=== PATIENT | male | born 1950 | race Caucasian/White ===

== ENCOUNTER 2017-04-29 10:33 | Emergency (ER) | payer MEDICARE, OTHER ==
[~2017-04-29] VITALS: Ht 172.7 cm; Wt 97.5 kg
[2017-04-29] MEDS ORDERED: ONDANSETRON ODT 4 MG TAB.RAPDIS. PO ONE (11:00)
[2017-04-29] MEDS ORDERED: IV NORMAL SALINE 1000ML BAG 1,000 ML IV ONE (11:15)
--- NOTE | 2017-04-29 11:40 | EKG ---
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
[2017-04-29 11:57] LABS: BASO % 0 % (0-3); EOS % 1 % (0-3); HEMATOCRIT 43.8 % (39.0-53.0); HEMOGLOBIN 15.2 g/dL (13.0-17.5); LYMPH # 1.1 x10^3/uL (1.0-4.8); LYMPH % 11 % (24-48); MEAN CORPUSCULAR HEMOGLOBIN 33 pg (25-35); MEAN CORPUSCULAR HGB CONC 35 g/dL (31-37); MEAN CORPUSCULAR VOLUME 94 fL (79-100); MONO % 6 % (0-9); NEUT % 82 % (31-73); PLATELET COUNT 260 x10^3/uL (140-400); RED BLOOD COUNT 4.65 x10^6/uL (4.30-5.70); RED CELL DISTRIBUTION WIDTH 13.4 % (11.5-14.5)
[2017-04-29] MEDS ORDERED: ONDANSETRON PF 4 MG/2 ML VIAL. IV ONE (12:00)
[2017-04-29 12:12] LABS: CALCIUM 9.2 mg/dL (8.5-10.1); CREATININE 1.1 mg/dL (0.7-1.3); GFR 66.4; POTASSIUM 4.6 mmol/L (3.5-5.1)
[2017-04-29 12:14] LABS: ETHANOL < 10 mg/dL (0-10)
[2017-04-29 12:17] LABS: TOTAL BILIRUBIN 0.7 mg/dL (0.2-1.0); TOTAL PROTEIN 8.2 g/dL (6.4-8.2)
[2017-04-29 12:26] LABS: CKMB MASS 5.2 ng/mL (0.0-3.6)
--- NOTE | 2017-04-29 12:56 | RAD ---
Indication fall, pain. A single view of the chest was obtained as well as films targeted to left ribs. The chest is compared to a study 01/01/2016. The heart and pulmonary vessels appear normal. The lungs are clear. There is no pleural fluid. There is no pneumothorax. A granuloma is noted in the right lung, stable. Films targeted to left ribs appear normal. IMPRESSION: Normal single view of the chest. Normal plain films left rib
[2017-04-29 13:19] LABS: BILIRUBIN,URINE NEGATIVE (NEG); GLUCOSE,URINE >=1000 mg/dL (NEG); NITRITE,URINE NEGATIVE (NEG); PROTEIN,URINE 100 mg/dL (NEG-TRACE); UROBILINOGEN,URINE 0.2 mg/dL (0.2 mg/dL)
[2017-04-29 13:23] LABS: BARBITURATES NEG (NEG); BENZODIAZEPINES NEG (NEG); CANNABINOIDS NEG (NEG); COCAINE NEG (NEG); METHADONE NEG (NEG); OPIATES POS (NEG); PHENCYCLIDINE NEG (NEG)
[2017-04-29 13:30] LABS: BACTERIA,URINE 0 /HPF (0-FEW); WBC,URINE 0 /HPF (0-4)
[2017-04-29 13:57] VITALS: BP 132/68
[2017-04-29] MEDS ORDERED: PROCHLORPERAZINE 10 MG/2 ML VIAL. IV ONE (14:00)
[2017-04-29] MEDS ORDERED: ONDA4TAB10 SL (14:14)
[2017-04-29] MEDS ORDERED: PROC10TA57 PO (14:14)
[2017-04-29] MEDS ORDERED: ACET-704 PO (14:14)
--- NOTE | 2017-04-29 14:14 | PHYS DOC ---
Past Medical History Past Medical History: Diabetes-Type II, High Cholesterol, Hypertension Additional Past Medical Histor: neuropathy, lower ext edema Past Surgical History: Cholecystectomy, Knee Replacement Additional Past Surgical Histo: cardiac stent Alcohol Use: Heavy Additional Information: 12 pack every other day Drug Use: None Adult General Chief Complaint Chief Complaint: MECHANICAL FALL HPI HPI Patient is a 67 year old male with history of diabetes hypertension and high cholesterol who presents with mild left anterior rib pain that began yesterday after he fell. Patient states he tripped on his feet and fell. Patient denies hitting his head on the ground. Denies any loss of consciousness. He states he took 2 oxycodone tablets from a neighbor and he has been nauseated since then. Review of Systems Review of Systems Constitutional: Denies fever or chills [] Eyes: Denies change in visual acuity, redness, or eye pain [] HENT: Denies nasal congestion or sore throat [] Respiratory: mild left anterior rib pain Cardiovascular: No additional information not addressed in HPI [] GI: Nausea : Denies dysuria or hematuria [] Musculoskeletal: Denies back pain or joint pain [] Integument: Denies rash or skin lesions [] Neurologic: Denies headache, focal weakness or sensory changes [] Endocrine: Denies polyuria or polydipsia [] Current Medications Current Medications Current Medications Medications (Trade) Dose Ordered Sig/Gautam Start Time Stop Time Status Last Admin Dose Admin Ondansetron HCl (Zofran Odt) 4 mg 1X ONCE 04/29/17 11:00 04/29/17 11:01 DC 04/29/17 11:25 4 MG Ondansetron HCl (Zofran) 4 mg 1X ONCE 04/29/17 12:00 04/29/17 12:01 DC 04/29/17 11:57 4 MG Prochlorperazine Edisylate (Compazine) 10 mg 1X ONCE 04/29/17 14:00 04/29/17 14:01 DC 04/29/17 14:03 10 MG Sodium Chloride 1,000 ml @ 1,000 mls/hr 1X ONCE 04/29/17 11:15 04/29/17 12:14 DC 04/29/17 11:57 1,000 MLS/HR Allergies Allergies Allergies Coded Allergies Type Severity Reaction Last Updated Verified Penicillins Allergy Mild HIVES 04/29/17 Yes Physical Exam Physical Exam Constitutional: Well developed, well nourished, no acute distress, non-toxic appearance. [] HENT: Normocephalic, atraumatic, bilateral external ears normal, oropharynx moist, no oral exudates, nose normal. [] Eyes: PERRLA, EOMI, conjunctiva normal, no discharge. [] Neck: Normal range of motion, no tenderness, supple, no stridor. [] Cardiovascular:Heart rate regular rhythm, no murmur [] Lungs & Thorax: Bilateral breath sounds clear to auscultation, tenderness on palpation of the left anterior ribs approximately ribs 5 and 6 midclavicular line. Abdomen: Bowel sounds normal, soft, no tenderness, no masses, no pulsatile masses. [] Skin: Warm, dry, no erythema, no rash. [] Back: No tenderness, no CVA tenderness. [] Extremities: No tenderness, no cyanosis, no clubbing, ROM intact, no edema. [] Neurologic: Alert and oriented X 3, normal motor function, normal sensory function, no focal deficits noted. [] Psychologic: Affect normal, judgement normal, mood normal. [] Current Patient Data Vital Signs Vital Signs Date Time Temp Pulse Resp B/P (MAP) Pulse Ox O2 Delivery O2 Flow Rate FiO2 04/29/17 13:57 78 18 132/68 (89) 94 Room Air 04/29/17 10:46 98.0 98.0 Lab Values Laboratory Tests Test 04/29/17 11:45 04/29/17 13:10 White Blood Count 10.0 x10^3/uL (4.0-11.0) Red Blood Count 4.65 x10^6/uL (4.30-5.70) Hemoglobin 15.2 g/dL (13.0-17.5) Hematocrit 43.8 % (39.0-53.0) Mean Corpuscular Volume 94 fL (79-100) Mean Corpuscular Hemoglobin 33 pg (25-35) Mean Corpuscular Hemoglobin Concent 35 g/dL (31-37) Red Cell Distribution Width 13.4 % (11.5-14.5) Platelet Count 260 x10^3/uL (140-400) Neutrophils (%) (Auto) 82 % (31-73) H Lymphocytes (%) (Auto) 11 % (24-48) L Monocytes (%) (Auto) 6 % (0-9) Eosinophils (%) (Auto) 1 % (0-3) Basophils (%) (Auto) 0 % (0-3) Neutrophils # (Auto) 8.1 x10^3uL (1.8-7.7) H Lymphocytes # (Auto) 1.1 x10^3/uL (1.0-4.8) Monocytes # (Auto) 0.6 x10^3/uL (0.0-1.1) Eosinophils # (Auto) 0.0 x10^3/uL (0.0-0.7) Basophils # (Auto) 0.0 x10^3/uL (0.0-0.2) Sodium Level 130 mmol/L (136-145) L Potassium Level 4.6 mmol/L (3.5-5.1) Chloride Level 95 mmol/L (98-107) L Carbon Dioxide Level 22 mmol/L (21-32) Anion Gap 13 (6-14) Blood Urea Nitrogen 15 mg/dL (8-26) Creatinine 1.1 mg/dL (0.7-1.3) Estimated GFR (Cockcroft-Gault) 66.4 BUN/Creatinine Ratio 14 (6-20) Glucose Level 225 mg/dL (70-99) H Calcium Level 9.2 mg/dL (8.5-10.1) Total Bilirubin 0.7 mg/dL (0.2-1.0) Aspartate Amino Transferase (AST) 28 U/L (15-37) Alanine Aminotransferase (ALT) 28 U/L (16-63) Alkaline Phosphatase 69 U/L (46-116) Creatine Kinase 475 U/L (39-308) H Creatine Kinase MB (Mass) 5.2 ng/mL (0.0-3.6) H Creatine Kinase MB Relative Index 1.1 % (0-4) Troponin I Quantitative < 0.017 ng/mL (0.000-0.055) Total Protein 8.2 g/dL (6.4-8.2) Albumin 4.0 g/dL (3.4-5.0) Albumin/Globulin Ratio 1.0 (1.0-1.7) Salicylates Level 2.9 mg/dL (2.8-20.0) Salicylate Last Dose Date Unknown Salicylate Last Dose Time Unknown Acetaminophen Level < 2 mcg/ml (10-30) L Acetaminophen Last Dose Date Unknown Acetaminophen Last Dose Time Unknown Ethyl Alcohol Level < 10 mg/dL (0-10) Urine Collection Type Unknown Urine Color Yellow Urine Clarity Clear Urine pH 6.0 Urine Specific [place] 1.020 Urine Protein 100 mg/dL (NEG-TRACE) Urine Glucose (UA) >=1000 mg/dL (NEG) Urine Ketones (Stick) Trace mg/dL (NEG) Urine Blood Negative (NEG) Urine Nitrite Negative (NEG) Urine Bilirubin Negative (NEG) Urine Urobilinogen Dipstick 0.2 mg/dL (0.2 mg/dL) Urine Leukocyte Esterase Negative (NEG) Urine RBC 6-10 /HPF (0-2) Urine WBC 0 /HPF (0-4) Urine Bacteria 0 /HPF (0-FEW) Urine Hyaline Casts Moderate /HPF Urine Mucus Mod /LPF Urine Opiates Screen Pos (NEG) Urine Methadone Screen Neg (NEG) Urine Barbiturates Neg (NEG) Urine Phencyclidine Screen Neg (NEG) Urine Amphetamine/Methamphetamine Neg (NEG) Urine Benzodiazepines Screen Neg (NEG) Urine Cocaine Screen Neg (NEG) Urine Cannabinoids Screen Neg (NEG) Urine Ethyl Alcohol Neg (NEG) Laboratory Tests 04/29/17 11:45 Laboratory Tests 04/29/17 11:45 EKG EKG []EKG interpreted by Dr. Romero sinus rhythm heart rate 84 no STEMI Radiology/Procedures Radiology/Procedures []PROCEDURE: RIBS LEFT AND PA CHEST Indication fall, pain. A single view of the chest was obtained as well as films targeted to left ribs. The chest is compared to a study 01/01/2016. The heart and pulmonary vessels appear normal. The lungs are clear. There is no pleural fluid. There is no pneumothorax. A granuloma is noted in the right lung, stable. Films targeted to left ribs appear normal. IMPRESSION: Normal single view of the chest. Normal plain films left rib DICTATED and SIGNED BY: TEENA PRICE MD DATE: 04/29/17 1250 CC: PANCHO MCCLURE; GALILEO DAVENPORT MILD DISABILITIES TEACHER; NON,STAFF ~ Course & Med Decision Making Course & Med Decision Making Pertinent Labs and Imaging studies reviewed. (See chart for details) Patient is in the ED with left anterior rib pain after falling last night. He tripped on himself. He took 2 oxycodone tablets from a neighbor and is nauseated from the oxycodone. EKG interpreted by Dr. Romero sinus rhythm heart rate 84 no STEMI. Chest x-ray interpreted by radiologist was negative for any acute findings. CBC with a sodium of 130, patient is alert and oriented has no neurological symptoms. Cardiac workup is negative. Patient was given a liter of IV fluid Zofran and Compazine in the ED with good relief of his nausea. Had a consult at all times He was advised not to take pain medicines from other people. He was discharged with Tylenol 3 Compazine and Zofran. He is to follow-up with his own PCP in 3-7 days. Patient was encouraged to increase dietary sodium intake through salty foods for three days Dragon Disclaimer Dragon Disclaimer This electronic medical record was generated, in whole or in part, using a voice recognition dictation system. Departure Departure Impression: Primary Impression: Contusion of rib on left side Additional Impressions: Fall from standing Nausea Hyponatremia Disposition: 01 HOME, SELF-CARE Condition: STABLE Referrals: PANCHO MCCLURE (PCP) Follow-up with your doctor in 2-7 days Patient Instructions: Fall Prevention and Home Safety, Nausea, Adult, Rib Contusion Additional Instructions: You were seen for left rib contusion after falling. You also have nausea from taking Percocet/Oyxcodone. Do not take Percocet/oxycodone anymore for pain. Take the prescribed nausea medicine as needed. Take the prescribed pain medicine as needed. Follow-up with your doctor as soon as you can. Come back to the ED if symptoms worsen. Scripts Acetaminophen With Codeine (TYLENOL WITH CODEINE #3 TABLET) 1 Each Tablet 1 TAB PO PRN Q6HRS Y for PAIN, #20 TAB Prov: MUTUNGA,GALILEO MILD DISABILITIES TEACHER 04/29/17 Prochlorperazine Maleate (Compazine) 10 Mg Tablet 10 MG PO Q8HRS, #20 TAB Prov: MUTUNGA,GALILEO MILD DISABILITIES TEACHER 04/29/17 Ondansetron (ZOFRAN ODT) 4 Mg Tab.rapdis 1 TAB SL Q8HRS, #15 TAB Prov: MUTUNGA,GALILEO MILD DISABILITIES TEACHER 04/29/17 Problem Qualifiers Primary Impression: Contusion of rib on left side Encounter type: initial encounter Qualified Codes: S20.212A - Contusion of left front wall of thorax, initial encounter Additional Impressions: Fall from standing Encounter type: initial encounter Qualified Codes: W19.XXXA - Unspecified fall, initial encounter GALILEO DAVENPORT MILD DISABILITIES TEACHER Apr 29, 2017 14:14
== END 2017-04-29 14:30 | disposition home or self-care (01) ==
LOC: ER 10:33
DX: S20.212A Contusion of left front wall of thorax, initial encounter (principal); E87.1 Hypo-osmolality and hyponatremia; R11.0 Nausea; E78.00 Pure hypercholesterolemia, unspecified; I10 Essential (primary) hypertension; E11.40 Type 2 diabetes mellitus with diabetic neuropathy, unspecified; Z90.49 Acquired absence of other specified parts of digestive tract; Z95.5 Presence of coronary angioplasty implant and graft; Z96.659 Presence of unspecified artificial knee joint; F17.200 Nicotine dependence, unspecified, uncomplicated; Z88.0 Allergy status to penicillin; F10.10 Alcohol abuse, uncomplicated; Y90.9 Presence of alcohol in blood, level not specified; W01.0XXA Fall on same level from slipping, tripping and stumbling without subsequent striking against object, initial encounter; Y93.89 Activity, other specified; Y92.89 Other specified places as the place of occurrence of the external cause; Y99.8 Other external cause status
CPT/HCPCS: 36415; 71101; 80053; 80305; 81001; 82553; 84484; 85027; 93005; 96361; 96374; 96375; 99285; G0480; J0780; J2405; J7030; Q0162; 80320; 80329; G0481

== ENCOUNTER 2019-01-17 21:59 | Emergency (ER) | payer MEDICARE ==
[~2019-01-17] VITALS: Ht 170.2 cm; Wt 97.5 kg
[~2019-01-17 21:59] MED LIST: ACET-704 PO; ONDA4TAB10 SL; PROC10TA57 PO
[2019-01-18 00:13] LABS: BASO # 0.1 x10^3/uL (0.0-0.2); BASO % 1 % (0-3); EOS % 0 % (0-3); HEMATOCRIT 46.9 % (39.0-53.0); HEMOGLOBIN 16.3 g/dL (13.0-17.5); LYMPH # 0.8 x10^3/uL (1.0-4.8); LYMPH % 8 % (24-48); MEAN CORPUSCULAR HEMOGLOBIN 33 pg (25-35); MEAN CORPUSCULAR HGB CONC 35 g/dL (31-37); MEAN CORPUSCULAR VOLUME 94 fL (79-100); MONO # 0.6 x10^3/uL (0.0-1.1); MONO % 6 % (0-9); NEUT # 9.1 x10^3uL (1.8-7.7); NEUT % 85 % (31-73); PLATELET COUNT 253 x10^3/uL (140-400); RED BLOOD COUNT 5.02 x10^6/uL (4.30-5.70); RED CELL DISTRIBUTION WIDTH 13.3 % (11.5-14.5); WHITE BLOOD COUNT 10.7 x10^3/uL (4.0-11.0)
[2019-01-18 00:14] LABS: CALCIUM 9.4 mg/dL (8.5-10.1); CREATININE 1.7 mg/dL (0.7-1.3); POTASSIUM 4.7 mmol/L (3.5-5.1)
[2019-01-18] MEDS ORDERED: IV NORMAL SALINE 1000ML BAG 1,000 ML IV ONE (00:15)
[2019-01-18] MEDS ORDERED: ONDANSETRON PF 4 MG/2 ML VIAL. IV ONE (00:15)
[2019-01-18 00:20] LABS: ALBUMIN 3.2 g/dL (3.4-5.0); ALBUMIN/GLOBULIN RATIO 0.7 (1.0-1.7); TOTAL BILIRUBIN 0.6 mg/dL (0.2-1.0); TOTAL PROTEIN 7.8 g/dL (6.4-8.2)
[2019-01-18 00:52] LABS: % BANDS 1 % (0-9); % LYMPHS 10 % (24-48); % MONOS 6 % (0-10); % SEGS 83 % (35-66); PLT ESTIMATE ADEQUATE (ADEQUATE)
[2019-01-18] MEDS ORDERED: ONDANSETRON ODT 4 MG TAB.RAPDIS. PO ONE (01:00)
--- NOTE | 2019-01-18 01:35 | RAD ---
PQRS Compliance statement: One or more of the following individualized dose reduction techniques were utilized for this examination: 1. Automated exposure control. 2. Adjustment of the mA and/or kV according to patient size. 3. Use of iterative reconstruction technique. Indication:ABD PAIN, VOMITING TECHNIQUE: CT abdomen and pelvis without IV contrast with multiplanar reformats. COMPARISON: 11/12/2010 FINDINGS: Limited evaluation of solid abdominal and pelvic organs due to lack of IV contrast. Heart is normal in size. No pericardial or pleural effusion. Clear lung bases. Noncontrast appearance of the liver, spleen, pancreas, adrenals within normal limits. Status post cholecystectomy. No nephrolithiasis or hydronephrosis. Bilateral perinephric stranding densities, nonspecific and may be secondary to edema or chronic scarring. Moderate diffuse atherosclerotic disease of the abdominal aorta and bilateral iliac arteries. Thick atherosclerotic plaque at the origin of the celiac axis and SMA. No free pelvic fluid or ascites. Small bilateral fat-containing inguinal hernia. Sigmoid and descending colon diverticulosis. Circumferential wall thickening of the descending colon with pericolonic inflammatory changes. No bowel obstruction. Normal appendix. The prostate and seminal vesicles show no large mass. No pneumoperitoneum. Urinary bladder is within normal limits. No suspicious bony lesion. IMPRESSION: 1. Findings of descending colon colitis. Sigmoid and distal descending colon diverticulosis. 2. Significant atherosclerotic plaque at the origin of the celiac axis, SMA and of the proximal and mid segment of the SMA. Electronically signed by: Elder Ledesma DO (01/18/2019 1:32 AM) [facility]
--- NOTE | 2019-01-18 01:40 | PHYS DOC ---
Past Medical History Past Medical History: Diabetes-Type II, High Cholesterol, Hypertension Additional Past Medical Histor: neuropathy, lower ext edema Past Surgical History: Cholecystectomy, Knee Replacement Additional Past Surgical Histo: cardiac stent Alcohol Use: Heavy Drug Use: None Adult General Chief Complaint Chief Complaint: NAUSEA/VOMITING/DIARRHA HPI HPI Patient is a 68 year old male presents with a chief complaint of abdominal pain associated with nausea and vomiting. Patient states symptoms started 1400 hrs. Patient's pain is located in the left lower abdomen. Pain does not radiate. Patient denies any associated diarrhea. Review of Systems Review of Systems Constitutional: Denies fever or chills [] Eyes: Denies change in visual acuity, redness, or eye pain [] HENT: Denies nasal congestion or sore throat [] Respiratory: Denies cough or shortness of breath [] Cardiovascular: No additional information not addressed in HPI [] GI Positive abdominal pain positive nausea positive vomiting : Denies dysuria or hematuria [] Musculoskeletal: Denies back pain or joint pain [] Integument: Denies rash or skin lesions [] Neurologic: Denies headache, focal weakness or sensory changes [] Endocrine: Denies polyuria or polydipsia [] All other systems were reviewed and found to be within normal limits, except as documented in this note. Current Medications Current Medications Current Medications Medications (Trade) Dose Ordered Sig/Gautam Start Time Stop Time Status Last Admin Dose Admin Ondansetron HCl (Zofran Odt) 4 mg 1X ONCE 01/18/19 01:00 01/18/19 01:01 DC 01/18/19 01:01 4 MG Ondansetron HCl (Zofran) 4 mg 1X ONCE 01/18/19 00:15 01/18/19 00:44 DC Promethazine HCl (Phenergan Supp) 25 mg 1X ONCE 01/18/19 02:00 01/18/19 02:01 DC 01/18/19 02:00 25 MG Sodium Chloride 1,000 ml @ 1,000 mls/hr 1X ONCE 01/18/19 00:15 01/18/19 00:44 DC Allergies Allergies Allergies Coded Allergies Type Severity Reaction Last Updated Verified Penicillins Allergy Mild HIVES 04/29/17 Yes Physical Exam Physical Exam Constitutional: Well developed, well nourished, no acute distress, non-toxic appearance. [] HENT: Normocephalic, atraumatic, bilateral external ears normal, oropharynx moist, no oral exudates, nose normal. [] Eyes: PERRLA, EOMI, conjunctiva normal, no discharge. [] Neck: Normal range of motion, no tenderness, supple, no stridor. [] Cardiovascular:Heart rate regular rhythm, no murmur [] Lungs & Thorax: Bilateral breath sounds clear to auscultation [] Abdomen: Bowel sounds normal, soft, no tenderness, no masses, no pulsatile masses. [] Skin: Warm, dry, no erythema, no rash. [] Back: No tenderness, no CVA tenderness. [] Extremities: No tenderness, no cyanosis, no clubbing, ROM intact, no edema. [] Neurologic: Alert and oriented X 3, normal motor function, normal sensory function, no focal deficits noted. [] Psychologic: Affect normal, judgement normal, mood normal. [] Current Patient Data Vital Signs Vital Signs Date Time Temp Pulse Resp B/P (MAP) Pulse Ox O2 Delivery O2 Flow Rate FiO2 01/18/19 02:36 96 18 161/95 (117) Room Air 01/18/19 00:06 95 01/17/19 22:05 98.3 98.3 Lab Values Laboratory Tests Test 01/17/19 23:59 01/18/19 01:30 White Blood Count 10.7 x10^3/uL (4.0-11.0) Red Blood Count 5.02 x10^6/uL (4.30-5.70) Hemoglobin 16.3 g/dL (13.0-17.5) Hematocrit 46.9 % (39.0-53.0) Mean Corpuscular Volume 94 fL (79-100) Mean Corpuscular Hemoglobin 33 pg (25-35) Mean Corpuscular Hemoglobin Concent 35 g/dL (31-37) Red Cell Distribution Width 13.3 % (11.5-14.5) Platelet Count 253 x10^3/uL (140-400) Neutrophils (%) (Auto) 85 % (31-73) H Lymphocytes (%) (Auto) 8 % (24-48) L Monocytes (%) (Auto) 6 % (0-9) Eosinophils (%) (Auto) 0 % (0-3) Basophils (%) (Auto) 1 % (0-3) Neutrophils # (Auto) 9.1 x10^3uL (1.8-7.7) H Lymphocytes # (Auto) 0.8 x10^3/uL (1.0-4.8) L Monocytes # (Auto) 0.6 x10^3/uL (0.0-1.1) Eosinophils # (Auto) 0.0 x10^3/uL (0.0-0.7) Basophils # (Auto) 0.1 x10^3/uL (0.0-0.2) Segmented Neutrophils % 83 % (35-66) H Band Neutrophils % 1 % (0-9) Lymphocytes % 10 % (24-48) L Monocytes % 6 % (0-10) Platelet Estimate Adequate (ADEQUATE) Sodium Level 137 mmol/L (136-145) Potassium Level 4.7 mmol/L (3.5-5.1) Chloride Level 98 mmol/L (98-107) Carbon Dioxide Level 26 mmol/L (21-32) Anion Gap 13 (6-14) Blood Urea Nitrogen 26 mg/dL (8-26) Creatinine 1.7 mg/dL (0.7-1.3) H Estimated GFR (Cockcroft-Gault) 40.0 BUN/Creatinine Ratio 15 (6-20) Glucose Level 255 mg/dL (70-99) H Calcium Level 9.4 mg/dL (8.5-10.1) Total Bilirubin 0.6 mg/dL (0.2-1.0) Aspartate Amino Transferase (AST) 20 U/L (15-37) Alanine Aminotransferase (ALT) 25 U/L (16-63) Alkaline Phosphatase 90 U/L (46-116) Total Protein 7.8 g/dL (6.4-8.2) Albumin 3.2 g/dL (3.4-5.0) L Albumin/Globulin Ratio 0.7 (1.0-1.7) L Lipase 104 U/L (73-393) Urine Collection Type Unknown Urine Color Prema Urine Clarity Clear Urine pH 5.5 Urine Specific [place] 1.025 Urine Protein >=300 mg/dL (NEG-TRACE) Urine Glucose (UA) >=1000 mg/dL (NEG) Urine Ketones (Stick) Trace mg/dL (NEG) Urine Blood Moderate (NEG) Urine Nitrite Negative (NEG) Urine Bilirubin Small (NEG) Urine Urobilinogen Dipstick 1.0 mg/dL (0.2 mg/dL) Urine Leukocyte Esterase Negative (NEG) Urine RBC 11-20 /HPF (0-2) Urine WBC Occ /HPF (0-4) Urine Squamous Epithelial Cells Few /LPF Urine Bacteria 0 /HPF (0-FEW) Urine Hyaline Casts Moderate /HPF Urine Mucus Mod /LPF Laboratory Tests 01/17/19 23:59 Laboratory Tests 01/17/19 23:59 EKG EKG [] Radiology/Procedures Radiology/Procedures [] Course & Med Decision Making Course & Med Decision Making Pertinent Labs and Imaging studies reviewed. (See chart for details) []Patient was evaluated for chief complaint. Workup consisted of laboratory analysis and radiologic imaging. Results reviewed and discussed with patient and family. Treatment included Zofran with minimal relief. Patient was then treated with promethazine with control of nausea. Patient tolerated by mouth. CT abdomen and pelvis shows colitis left colon. Discussed hospitalization for his discharge home. Patient states he feels much better like to be treated on outpatient basis. Patient was discharged home with promethazine and Cipro and Flagyl. Patient advised to return to the emergency department for reevaluation if symptoms persist get worse or any new concerning symptoms arise. Dragon Disclaimer Dragon Disclaimer This electronic medical record was generated, in whole or in part, using a voice recognition dictation system. Departure Departure Impression: Primary Impression: Colitis Additional Impression: Nausea & vomiting Disposition: 01 HOME, SELF-CARE Condition: STABLE Referrals: PANCHO MCCLURE (PCP) Patient Instructions: Colitis, Nausea and Vomiting Problem Qualifiers USRESH TRISTAN DO Jan 18, 2019 01:40
[2019-01-18 01:46] LABS: BILIRUBIN,URINE SMALL (NEG); CLARITY,URINE CLEAR; COLOR,URINE AMBER; NITRITE,URINE NEGATIVE (NEG); PH,URINE 5.5; PROTEIN,URINE >=300 mg/dL (NEG-TRACE)
[2019-01-18 01:54] LABS: BACTERIA,URINE 0 /HPF (0-FEW); HYALINE CASTS, URINE MODERATE /HPF; SQUAMOUS EPITHELIAL CELL,UR FEW /LPF; WBC,URINE OCC /HPF (0-4)
[2019-01-18] MEDS ORDERED: PROMETHAZINE 25 MG SUPP.RECT. PR ONE (02:00)
[2019-01-18 02:36] VITALS: BP 161/95
== END 2019-01-18 03:26 | disposition home or self-care (01) ==
LOC: ER 21:59
DX: K52.9 Noninfective gastroenteritis and colitis, unspecified (principal); E11.40 Type 2 diabetes mellitus with diabetic neuropathy, unspecified; E78.00 Pure hypercholesterolemia, unspecified; I10 Essential (primary) hypertension; Z90.49 Acquired absence of other specified parts of digestive tract; Z95.5 Presence of coronary angioplasty implant and graft; F10.20 Alcohol dependence, uncomplicated; Y90.9 Presence of alcohol in blood, level not specified; Z88.0 Allergy status to penicillin
CPT/HCPCS: 36415; 74176; 80053; 81001; 83690; 85007; 85025; 99284; Q0162

== ENCOUNTER → 2020-11-21 | Outpatient (CLI) | payer MEDICARE ==
[~2020-11-21] MED LIST changes: +AMLO-187 PO; +ASPI-630 PO; +CARV25TA2 PO; +CLOP75TA PO; +CRESTOR40 MG PO; +CYAN100072 PO; +GABA300C18 PO; +INSU100C4 SQ; +INSU100I13 SQ; +ISOS30TA4 PO; +LISI-130 PO; +MELA3TAB4 PO; +METF500T16 PO; +METR-34 PO; +SILD20TA4 PO
== END ==
LOC: LAB 11:40
PROVIDERS: ATTEND Internal Medicine Cardiovascular Disease
DX: Z01.812 Encounter for preprocedural laboratory examination (principal); R07.9 Chest pain, unspecified; R06.02 Shortness of breath; Z20.828 Contact with and (suspected) exposure to other viral communicable diseases
CPT/HCPCS: U0003

== ENCOUNTER 2020-11-23 08:58 | Outpatient (CLI) | payer MEDICARE, OTHER ==
[2020-11-23] VITALS (11 sets, daily range): BP systolic 118–141; BP diastolic 72–85
[~2020-11-23] VITALS: Ht 170.2 cm; Wt 99.8 kg
[~2020-11-23 08:58] MED LIST changes: -AMLO-187 PO; -ASPI-630 PO; -CARV25TA2 PO; -CLOP75TA PO; -CRESTOR40 MG PO; -CYAN100072 PO; -GABA300C18 PO; -INSU100C4 SQ; -INSU100I13 SQ; +IODIXANOL 320 MG/ML 100 ML VIAL. ONE; -ISOS30TA4 PO; -LISI-130 PO; -MELA3TAB4 PO; -METF500T16 PO; -METR-34 PO; -SILD20TA4 PO
[2020-11-23] MEDS ORDERED: INSU100I13 SQ (09:29)
[2020-11-23] MEDS ORDERED: CYAN100072 PO (09:29)
[2020-11-23] MEDS ORDERED: LISI-130 PO (09:29)
[2020-11-23] MEDS ORDERED: CLOP75TA PO (09:29)
[2020-11-23] MEDS ORDERED: METR-34 PO (09:29)
[2020-11-23] MEDS ORDERED: AMLO-187 PO (09:29)
[2020-11-23] MEDS ORDERED: METF500T16 PO (09:29)
[2020-11-23] MEDS ORDERED: CARV25TA2 PO (09:29)
[2020-11-23 09:46] LABS: HEMATOCRIT 48.5 % (39.0-53.0); HEMOGLOBIN 16.7 g/dL (13.0-17.5); RED BLOOD COUNT 5.06 x10^6/uL (4.30-5.70)
[2020-11-23] MEDS ORDERED: HEPARIN for IV BOLUS 10,000 UNIT/10 ML VIAL. ONE (09:55)
[2020-11-23] MEDS ORDERED: fentaNYL PF VIAL 100 MCG/2 ML VIAL ONE (09:55)
[2020-11-23] MEDS ORDERED: MIDAZOLAM HCL/PF 2 MG/2 ML VIAL. ONE ×2 (09:55→10:46)
[2020-11-23] MEDS ORDERED: VERAPAMIL 5 MG/2 ML VIAL. ONE (09:55)
[2020-11-23] MEDS ORDERED: NITROGLYCERIN 200 MCG/2 ML SYRINGE FOR CATH/VASC LAB. ONE (09:56)
[2020-11-23 10:00] LABS: CREATININE 1.3 mg/dL (0.7-1.3); GFR 54.3; POTASSIUM 4.1 mmol/L (3.5-5.1)
[2020-11-23] MEDS ORDERED: HEPARIN for IV BOLUS 10,000 UNIT/10 ML VIAL. IART ONE (10:00)
[2020-11-23] MEDS ORDERED: fentaNYL PF VIAL 100 MCG/2 ML VIAL IV ONE (10:00)
[2020-11-23] MEDS ORDERED: IODIXANOL 320 MG/ML 100 ML VIAL. IART ONE (10:00)
[2020-11-23] MEDS ORDERED: LIDOCAINE 1% PF 2 ML VIAL. INJ ONE (10:00)
[2020-11-23] MEDS ORDERED: VERAPAMIL 5 MG/2 ML VIAL. IART ONE (10:00)
[2020-11-23] MEDS ORDERED: NITROGLYCERIN 200 MCG/2 ML SYRINGE FOR CATH/VASC LAB. IART ONE (10:00)
[2020-11-23] MEDS ORDERED: MIDAZOLAM HCL/PF 2 MG/2 ML VIAL. IV ONE (10:00)
[2020-11-23] MEDS ORDERED: DEXTROSE 50% 25 GM / 50ML DISP.SYRIN. IV ONE (10:00)
[2020-11-23 10:09] LABS: PROTHROMBIN TIME PATIENT 14.1 SEC (11.7-14.0)
[2020-11-23] MEDS ORDERED: CONTRAST GIVEN. MC PRN (10:30)
--- NOTE | 2020-11-23 10:42 | PDOC ---
MODERATE SEDATION ASSESSMENT RISKS/ALTERNATIVES Risks/Alternatives Risks and alternatives of this type of sedation and procedure discussed with: RISK/ALTERNATIVES: Patient H & P ON CHART H & P H & P on chart and reviewed for co-morbid conditions and appropriate labs. H&P ON CHART: Yes STATUS PREG STATUS ASSESSED: N/A MEDS/ALLERGIES REVIEWED Meds/Allergies Reviewed Medications and Allergies including time and route of recently administered narcotics and sedatives. MEDS/ALLERGIES REVIEWED: Yes ASA RATING ASA RATING: II AIRWAY ASSESSMENT Airway Assessment Airway patency, oral function limitations, presence of caps, crowns, dentures, partials, and ability to extend neck assessed. AIRWAY ASSESSMENT: Yes MALLAMPATI SCORE MALLAMPATI SCORE: II PRE-SEDATION ASSESSMENT PRE-SEDATION ASSESSMENT: Yes STEFANI PATINO MD Nov 23, 2020 10:42
[2020-11-23] MEDS ORDERED: ASPI-630 PO (12:22)
[2020-11-23] MEDS ORDERED: ISOS30TA68 PO (12:22)
[2020-11-23] MEDS ORDERED: MELA3TAB4 PO (12:29)
[2020-11-23] MEDS ORDERED: GABA300C18 PO (12:29)
[2020-11-23] MEDS ORDERED: CRESTOR40 MG PO (12:29)
[2020-11-23] MEDS ORDERED: INSU100C4 SQ (12:29)
[2020-11-23] MEDS ORDERED: SILD20TA4 PO (12:29)
--- NOTE | 2020-11-23 13:09 | CARD ---
MR#: [id number] Date of Study: 11/23/2020 Ordering Physician: STEFANI PATINO, Referring Physician: STEFANI PATINO Tech: FABRICIO ALBERTO RTR APPROVED REPORT Technologist: FABRICIO ALBERTO RTR Nurse: Corazon Sanabria RN Procedure(s) performed: Left heart catheterization, selective coronary angiography and left ventricul ography via right transradial approach MODERATE SEDATION TIME:33 MIN FLUORO TIME: 8.6 MIN DOSE: 125 GYCM2 CONTRAST: 150CC VISI INDICATION The indication(s) include : Unstable angina. CSHA Clinical Frailty Scale CS Clinical Frailty Scale: Managing Well Heart Failure Heart Failure: No PROCEDURE NARRATIVE After explaining the risks, benefits and alternative options, informed consent was obtained from red ent. Patient was brought to the cardiac [facility] and right wrist was prepped and draped in the usual fashion after confirming a positive modified [place]'s test. Arterial access was obtained in the [facility] radial artery and a 6 Cypriot sheath was inserted. 6 Cypriot Mark and 6 Cypriot JL 3.5 catheters wer e used to perform selective angiography of the right and left coronary arteries. 6 Cypriot pigtail ca theter was used to perform left ventriculography. Patient tolerated the procedure well. Hemostasis was achieved using TR band. There were no immediate complications. The following findings were note d. FINDINGS 1. Hemodynamics: Elevated left ventricular end-diastolic pressure of 33 mmHg consistent with acute o n chronic systolic and diastolic heart failure. No pullback gradient across the aortic valve. 2. Left ventriculography: Severe left ventricular systolic dysfunction with ejection fraction estima chau at 25%. Mitral regurgitation not well visualized but there appears to be at least 1-2+ MR. 3. Coronary angiography: a. The left main coronary artery arose from the left sinus of Valsalva, gave rise to the left anteri or descending and left circumflex arteries and showed 30% stenosis in the proximal segment and calcif ied 95% stenosis in the distal segment. b. The left anterior descending artery showed 99% stenosis in the proximal segment and 100% chronic total occlusion just distal to the stent in the midsegment. The diagonal branch showed 70% stenosis in the proximal segment. c. The left circumflex artery was a codominant vessel that showed 80% stenosis in the proximal segme nt and 80% stenosis in the very distal segment. The first and second obtuse marginal branches are sm all caliber vessels. The third obtuse marginal branch which is a medium to large caliber vessel show ed 90% stenosis in the midsegment. d. The right coronary artery was a codominant vessel arising from the right sinus of Valsalva that s howed 90% stenosis in the proximal to mid segment. There was a RV marginal branch taking off right a t the ostium which is a medium caliber vessel and showed 90% stenosis in the midsegment. Conclusion 1. Severe three-vessel coronary disease including significant left main coronary artery stenosis 2. Severe left ventricle systolic dysfunction with ejection fraction estimated at 25% 3. Elevated left ventricular end-diastolic pressure consistent with acute on chronic systolic and di astolic heart failure Recommendations Cardiothoracic surgery consultation for possible coronary artery bypass surgery. Check 2D echocardiogram to rule out any significant valvular abnormalities. Signed by : Stefani Patino, Electronically Approved : 11/23/2020 13:08:47
--- NOTE | 2020-11-23 13:57 | NUR ---
Patient taken to ECHO via wheelchair-- will be taken to vehicle after procedure. His will be driving. PIV removed. TR band removed, dressing applied. No bleeding at site. Arm board re-applied. RN educated patient on importance of not moving wrist, not lifting. Not submerging incision site under water. Educated patient on medications multiple times-- verbalized understanding. Aware that Plavix has been d/c. Aware of Imdur and ASA new Rx's. Called into [facility]. States he and his will pick them up this evening. Patient's present for education/instructions. Patient aware that [facility] will contact them. Advised to call at end of next week if patient has not been contacted by then. All belongings taken w/ patient at time of discharge. Addendum: 11/23/20 at 1408 by KRISHNA PASCUAL RN RN also instructed patient regarding lifestyle changes. Advised to try to quit/reduce smoking. Currently smokes one PPD. Patient's states he drinks alcohol 6-7 days/week. Patient denied at first. She states this is an issue and he is not honest about how much/often he drinks. RN reminded patient of lifestyle factors that could be contributing to his hear disease.
--- NOTE | 2020-11-24 09:36 | CARD ---
MR#: [id number] Date of Study: 11/23/2020 Ordering Physician: STEFANI MONTERROSO, Referring Physician: STEFANI MONTERROSO, Tech: Thuy Skelton APPROVED REPORT EXAM: Two-dimensional and M-mode echocardiogram with Doppler and color Doppler. Other Information HR: 73bpm INDICATION Unstable angina, CAD 2D DIMENSIONS RVDd3.9 (2.9-3.5cm)Left Atrium(2D)4.1 (1.6-4.0cm) IVSd1.2 (0.7-1.1cm)Aortic Root(2D)3.7 (2.0-3.7cm) LVDd5.5 (3.9-5.9cm)LVOT Diameter2.2 (1.8-2.4cm) PWd1.4 (0.7-1.1cm)LVDs3.9 (2.5-4.0cm) FS (%) 29.4 %SV82.1 ml LVEF(%)55.7 (>50%) Aortic Valve AoV Peak Dragan.206.4cm/sAoV VTI35.3cm AO Peak GR.17.0mmHgLVOT Peak Dragan.77.7cm/s LVOT VTI 15.03cmAO Mean GR.8mmHg MAYANK (VMAX)1.44dh8KZG (VTI)1.55cm2 Mitral Valve MV E Pcuxkutl205.6cm/sMV DECEL YXSD984op MV A Vdhgkwjq32.5cm/sMV LNT13ik E/A Ratio2.5MVA (PHT)4.56cm2 TDI E/Lateral E'17.9E/Medial E'22.2 Pulmonary Valve PV Peak Prgoagoo48.0cm/sPV Peak Grad.2mmHg Tricuspid Valve TR P. Lmxovvcg334uh/sRAP KLWMCJYA5glQu TR Peak Gr.13mpOdLHFT85heNy LEFT VENTRICLE The left ventricle is normal size. There is mild to moderate concentric left ventricular hypertrophy. The left ventricular systolic function is moderately impaired. Apical wall appears akinetic. The Eje ction Fraction is 25%. Tissue Doppler imaging reveals moderate left ventricular diastolic dysfunction . RIGHT VENTRICLE The right ventricle is normal size. There is normal right ventricular wall thickness. The right ventr icular systolic function is normal. ATRIA The left atrium is mildly dilated. The right atrium size is normal. The interatrial septum is intact with no evidence for an atrial septal defect or patent foramen ovale as noted on 2-D or Doppler imagi ng. AORTIC VALVE The aortic valve is mildly thickened. Doppler and Color Flow revealed no significant aortic regurgita tion. Calculated aortic valve area is 1.64 cm2 with maximum pressure gradient of 19 mmHg and mean pre ssure gradient of 9 mmHg. There is no significant aortic valvular stenosis. MITRAL VALVE The mitral valve is thickened but opens well. There is no evidence of mitral valve prolapse. There is no mitral valve stenosis. Doppler and Color-flow revealed mild mitral regurgitation. TRICUSPID VALVE The tricuspid valve is normal in structure and function. Doppler and Color Flow revealed trace tricus pid regurgitation with an estimated PAP of 36 mmHg. There is no tricuspid valve stenosis. PULMONIC VALVE The pulmonic valve is not well visualized. Doppler and Color Flow revealed no pulmonic valvular regur gitation. GREAT VESSELS The aortic root is normal in size. The ascending aorta is normal in size. The IVC is normal in size a nd collapses >50% with inspiration. PERICARDIAL EFFUSION There is no evidence of significant pericardial effusion. Critical Notification Critical Value: No <Conclusion> The left ventricular systolic function is moderately impaired. Apical wall appears akinetic. The Ejection Fraction is 25%. Tissue Doppler imaging reveals moderate left ventricular diastolic dysfunction. Mild mitral regurgitation. Trace tricuspid regurgitation with an estimated PAP of 36 mmHg. There is no evidence of significant pericardial effusion. Signed by : Stefani Monterroso, Electronically Approved : 11/24/2020 09:35:50
[2020-12-17] MEDS ORDERED: FURO10VI IVP (10:16)
[2020-12-17] MEDS ORDERED: ATOR20TA58 PO (10:16)
[2020-12-17] MEDS ORDERED: LEVO50TA5 PO (10:16)
[2020-12-17] MEDS ORDERED: IPRA3AMP29 NEB (10:16)
[2020-12-17] MEDS ORDERED: TEMA15CA PO (10:16)
== END 2020-11-23 14:00 | disposition home or self-care (01) ==
LOC: CCL 08:58
PROVIDERS: ATTEND Internal Medicine Cardiovascular Disease
DX: I25.110 Atherosclerotic heart disease of native coronary artery with unstable angina pectoris (principal); E11.9 Type 2 diabetes mellitus without complications; I10 Essential (primary) hypertension; E78.00 Pure hypercholesterolemia, unspecified; J44.9 Chronic obstructive pulmonary disease, unspecified; F17.210 Nicotine dependence, cigarettes, uncomplicated; Z79.899 Other long term (current) drug therapy; Z79.82 Long term (current) use of aspirin; Z79.84 Long term (current) use of oral hypoglycemic drugs; Z90.49 Acquired absence of other specified parts of digestive tract; Z98.890 Other specified postprocedural states; Z88.0 Allergy status to penicillin; Z72.89 Other problems related to lifestyle
CPT/HCPCS: 36415; 80048; 82962; 85027; 85610; 93306; 93458; 99152; 99153; C1769; C1892; J1644; J2250; J3010; J3490; Q9967

== ENCOUNTER 2020-12-14 05:23 | Inpatient (IN) | payer MEDICARE ==
[~2020-12-14] VITALS: Ht 170.2 cm; Wt 99.2 kg
[~2020-12-14 05:23] MED LIST changes: +AMLO-187 PO; +ASPI-630 PO; +CARV25TA2 PO; +CLOP75TA PO; +CRESTOR40 MG PO; +CYAN100072 PO; +GABA300C18 PO; +INSU100C4 SQ; +INSU100I13 SQ; -IODIXANOL 320 MG/ML 100 ML VIAL. ONE; +ISOS30TA68 PO; +LISI-130 PO; +MELA3TAB4 PO; +METF500T16 PO; +METR-34 PO; +SILD20TA4 PO
--- NOTE | 2020-12-14 05:31 | ED.ADGEN ---
Past Medical History Past Medical History: Diabetes-Type II, High Cholesterol, Hypertension Additional Past Medical Histor: neuropathy, lower ext edema Past Surgical History: Cholecystectomy, Knee Replacement Additional Past Surgical Histo: cardiac stent Smoking Status: Current Every Day Smoker Alcohol Use: Heavy Drug Use: None General Adult EDM: Chief Complaint: SHORTNESS OF BREATH HPI: HPI: Patient is 70-year-old male who presents to the emergency room in respiratory distress. History is limited due to patient's condition. Patient states that shortness of breath started last night. He has never had shortness of breath quite like this previously. He is supposed to have a CABG done at [facility] in 3 weeks. He denies any cough, URI symptoms, fever, chills, sweats, nausea, vomiting, abdominal pain. Review of Systems: Review of Systems: Complete ROS is negative unless otherwise documented in HPI Current Medications: Current Medications Medications (Trade) Dose Ordered Sig/Gautam Start Time Stop Time Status Last Admin Dose Admin Aspirin (Ecotrin) 325 mg 1X ONCE 12/14/20 06:45 12/14/20 07:00 DC Dextrose (Dextrose 50%-Water Syringe) 12.5 gm PRN Q15MIN PRN 12/14/20 07:15 Furosemide (Lasix) 40 mg 1X ONCE 12/14/20 06:15 12/14/20 06:16 DC 12/14/20 06:13 40 MG Insulin Human Lispro (HumaLOG) 0-5 UNITS TIDWMEALS 12/14/20 08:00 Ondansetron HCl (Zofran) 4 mg PRN Q8HRS PRN 12/14/20 07:15 12/15/20 07:14 Allergies: Allergies: Allergies Coded Allergies Type Severity Reaction Last Updated Verified Penicillins Allergy Intermediate HIVES 11/23/20 Yes Physical Exam: PE: General: Awake, alert, moderate distress HEENT: Atraumatic, EOMI, PERRL, airway patent, moist oral mucosa Neck: Supple, trachea midline Respiratory: Respiratory distress, decreased breath sounds bilaterally, diffuse crackles, accessory muscle use CV: Tachycardic, no murmur, cap refill <2 GI: Soft, nondistended, nontender, no masses MSK: No obvious deformities Skin: Warm, dry, intact Neuro: A&O x3, speech NL, sensory and motor grossly intact, no focal deficits Psych: Normal affect, normal mood, not suicidal or homicidal Constitutional: Well developed, well nourished HENT: Normocephalic, atraumatic Eyes: Conjunctiva normal, no discharge Neck: Normal range of motion, supple Lungs & Thorax: No respiratory distress on BiPAP, coarse breath sounds Abdomen: Soft, no tenderness Skin: Warm, dry, no erythema, no rash Back: No tenderness, no CVA tenderness Extremities: No tenderness, ROM intact Neurologic: Alert and oriented X 3, no focal deficits noted Psychologic: Affect normal, judgment normal Current Patient Data: Labs: Laboratory Tests Test 12/14/20 05:33 White Blood Count 8.7 x10^3/uL (4.0-11.0) Red Blood Count 4.93 x10^6/uL (4.30-5.70) Hemoglobin 15.8 g/dL (13.0-17.5) Hematocrit 46.7 % (39.0-53.0) Mean Corpuscular Volume 95 fL (79-100) Mean Corpuscular Hemoglobin 32 pg (25-35) Mean Corpuscular Hemoglobin Concent 34 g/dL (31-37) Red Cell Distribution Width 13.5 % (11.5-14.5) Platelet Count 368 x10^3/uL (140-400) Neutrophils (%) (Auto) 76 % (31-73) H Lymphocytes (%) (Auto) 13 % (24-48) L Monocytes (%) (Auto) 9 % (0-9) Eosinophils (%) (Auto) 1 % (0-3) Basophils (%) (Auto) 1 % (0-3) Neutrophils # (Auto) 6.6 x10^3/uL (1.8-7.7) Lymphocytes # (Auto) 1.2 x10^3/uL (1.0-4.8) Monocytes # (Auto) 0.8 x10^3/uL (0.0-1.1) Eosinophils # (Auto) 0.1 x10^3/uL (0.0-0.7) Basophils # (Auto) 0.1 x10^3/uL (0.0-0.2) Sodium Level 134 mmol/L (136-145) L Potassium Level 4.5 mmol/L (3.5-5.1) Chloride Level 99 mmol/L (98-107) Carbon Dioxide Level 22 mmol/L (21-32) Anion Gap 13 (6-14) Blood Urea Nitrogen 26 mg/dL (8-26) Creatinine 1.5 mg/dL (0.7-1.3) H Estimated GFR (Cockcroft-Gault) 46.0 BUN/Creatinine Ratio 17 (6-20) Glucose Level 149 mg/dL (70-99) H Calcium Level 9.5 mg/dL (8.5-10.1) Magnesium Level 1.8 mg/dL (1.8-2.4) Total Bilirubin 0.6 mg/dL (0.2-1.0) Aspartate Amino Transferase (AST) 20 U/L (15-37) Alanine Aminotransferase (ALT) 24 U/L (16-63) Alkaline Phosphatase 111 U/L (46-116) Troponin I Quantitative 0.094 ng/mL (0.000-0.055) WS-Wvb-S-Type Natriuretic Peptide 5263 pg/mL (0-124) H Total Protein 7.9 g/dL (6.4-8.2) Albumin 3.0 g/dL (3.4-5.0) L Albumin/Globulin Ratio 0.6 (1.0-1.7) L Laboratory Tests 12/14/20 05:33 Laboratory Tests 12/14/20 05:33 Vital Signs: Vital Signs Date Time Temp Pulse Resp B/P (MAP) Pulse Ox O2 Delivery O2 Flow Rate FiO2 12/14/20 06:30 84 16 135/79 (97) 97 BiPAP/CPAP 12/14/20 05:30 98.6 15.0 98.6 EKG: EKG: @0526 Sinus tachycardia at 108bpm, NO ST elevation, QRS 150ms, QT/QTc 358/484ms, LAFB, compared to prior EKG per [facility] from 04/29/2017 without significant change from prior. Radiology/Procedures: Radiology/Procedures: PROCEDURE: CHEST AP ONLY AP chest x-ray COMPARISON: Chest x-ray January 01, 2016. HISTORY: Shortness of breath. FINDINGS: Mild cardiomegaly and esophagus are larger relative to the prior study due to cardiac enlargement or superimposed pericardial effusion. Tortuosity and calcified plaque aortic arch again demonstrated. No pneumothorax. There is a mild right pleural effusion. Calcified granuloma right upper lobe is stable. Diffuse pulmonary interstitial infiltrates and lower lobe alveolar opacities most likely edema. IMPRESSION: Congestive heart failure with mild cardiomegaly, pulmonary edema and mild right pleural effusion. Electronically signed by: Demar Dixon MD (12/14/2020 5:43 AM) [facility] Course & Med Decision Making: Course & Med Decision Making Pertinent Labs and Imaging studies reviewed. (See chart for details) Patient is a 70-year-old male past medical history of cardiac disease and congestive heart failure presents to the emergency room complaining of shortness of breath for the last 8 hours. Patient presents in respiratory distress. He was placed on BiPAP upon arrival with significant improvement. Chest x-ray is suggestive of congestive heart failure. Lab work was ordered. Patient was discussed with oncoming physician Dr. Ramsey who will assume care. 0600- Signout received from Dr. Fofana for patient who appears to be in respiratory failure requiring BIPAP secondary to acute CHF exacerbation. Patient improved on BIPAP. CXR confirms signs of CHF. Lasix previously provided. EKG appears similar to prior. Labs pending at time of sign out. Labs posted to chart. Troponin slightly elevated. BNP >5000. Troponin more likely secondary to heart strain. Patient requiring admission for further evaluation and treatment. Discussed with Dr. Hodges (PCP) who is in agreement with admission. Discussed elevated troponin with Dr. Hodges. Decision to start heparin bolus/gtt. Consult placed to cardiology. Discussed findings and plan with patient and spouse, who acknowledge understanding and agreement. Carol Disclaimer: Carol Disclaimer: This electronic medical record was generated, in whole or in part, using a voice recognition dictation system. Departure Departure Impression: Primary Impression: Acute respiratory failure with hypoxemia Additional Impressions: Acute exacerbation of CHF (congestive heart failure) Elevated troponin Disposition: ADMITTED INPT THIS HOSP Admitting Physician: Sheree Hodges Condition: GUARDED Referrals: SHEREE HODGES MD (PCP) Critical Care Time Critical care time was 30 minutes which includes time at bedside, spent in discussion of patient's care with specialists and/or family members, with interpretation of laboratory and/or radiological studies and is exclusive of procedures. Problem Qualifiers Additional Impressions: Acute exacerbation of CHF (congestive heart failure) Heart failure type: unspecified Qualified Codes: I50.9 - Heart failure, unspecified JIMENA FOFANA MD Dec 14, 2020 05:31 RUTHIE RAMSEY DO Dec 14, 2020 06:20
--- NOTE | 2020-12-14 05:46 | RAD ---
AP chest x-ray COMPARISON: Chest x-ray January 01, 2016. HISTORY: Shortness of breath. FINDINGS: Mild cardiomegaly and esophagus are larger relative to the prior study due to cardiac enlar gement or superimposed pericardial effusion. Tortuosity and calcified plaque aortic arch again demons trated. No pneumothorax. There is a mild right pleural effusion. Calcified granuloma right upper lobe is stable. Diffuse pulmonary interstitial infiltrates and lower lobe alveolar opacities most likely edema. IMPRESSION: Congestive heart failure with mild cardiomegaly, pulmonary edema and mild right pleural e ffusion. Electronically signed by: Demar Dixon MD (12/14/2020 5:43 AM) [facility]
[2020-12-14] MEDS ORDERED: FUROSEMIDE 40 MG/4 ML VIAL. IVP ONE ×2 (06:15→10:30)
[2020-12-14 06:44] LABS: CALCIUM 9.5 mg/dL (8.5-10.1); CREATININE 1.5 mg/dL (0.7-1.3); POTASSIUM 4.5 mmol/L (3.5-5.1)
[2020-12-14] MEDS ORDERED: ASPIRIN ENTERIC COATED 325 MG TABLET.DR. PO ONE (06:45)
[2020-12-14 06:49] LABS: ALBUMIN/GLOBULIN RATIO 0.6 (1.0-1.7); TOTAL BILIRUBIN 0.6 mg/dL (0.2-1.0); TOTAL PROTEIN 7.9 g/dL (6.4-8.2)
[2020-12-14 07:02] LABS: BASO # 0.1 x10^3/uL (0.0-0.2); BASO % 1 % (0-3); EOS # 0.1 x10^3/uL (0.0-0.7); EOS % 1 % (0-3); HEMATOCRIT 46.7 % (39.0-53.0); HEMOGLOBIN 15.8 g/dL (13.0-17.5); LYMPH # 1.2 x10^3/uL (1.0-4.8); LYMPH % 13 % (24-48); MEAN CORPUSCULAR HEMOGLOBIN 32 pg (25-35); MEAN CORPUSCULAR HGB CONC 34 g/dL (31-37); MEAN CORPUSCULAR VOLUME 95 fL (79-100); MONO # 0.8 x10^3/uL (0.0-1.1); MONO % 9 % (0-9); NEUT # 6.6 x10^3/uL (1.8-7.7); NEUT % 76 % (31-73); PLATELET COUNT 368 x10^3/uL (140-400); RED BLOOD COUNT 4.93 x10^6/uL (4.30-5.70); RED CELL DISTRIBUTION WIDTH 13.5 % (11.5-14.5); WHITE BLOOD COUNT 8.7 x10^3/uL (4.0-11.0)
[2020-12-14] MEDS ORDERED: ONDANSETRON PF 4 MG/2 ML VIAL. IV PRN (07:15)
[2020-12-14] MEDS ORDERED: DEXTROSE 50% 25 GM / 50ML DISP.SYRIN. IV PRN (07:15)
[2020-12-14] MEDS ORDERED: HEPARIN for IV BOLUS 10,000 UNIT/10 ML VIAL. IV ONE (07:30)
[2020-12-14] MEDS ORDERED: HEPARIN for IV BOLUS 10,000 UNIT/10 ML VIAL. IV PRN (07:30)
[2020-12-14 07:35] LABS: PROTHROMBIN TIME PATIENT 13.5 SEC (11.7-14.0)
[2020-12-14] MEDS: INSULIN LISPRO 300 UNITS/3 ML VIAL. SQ SCH ×3 (08:00→17:00)
[2020-12-14 08:03] LABS: BASE EXCESS ABG 0 mmol/L (-3-3); HCO3 ABG 22 mmol/L (21-28); PCO2 ABG 32 mmHg (35-46); PO2 ABG 55 mmHg (65-108); SAT O2 ABG 90 % (92-99)
[2020-12-14 08:05] LABS: FIO2 ABG 64%/11L Simple Mask
--- NOTE | 2020-12-14 08:15 | NUR ---
The patient, BARBARA TAPIA, 70 y/o, M admitted by VIKI HODGES MD, was given written information regarding hospital policies, unit procedures and contact persons. Valuables were checked and left in room. Patient arrived to room 208 via gurney with ED nurse and RT on 11L oxygen via simple mask. Patient alert and oriented, following commands. Patient ambulated to bathroom with standby assistance. Oxygen saturation at 86%, BIPAP applied. Call light within reach.
[2020-12-14 08:20] VITALS: BP 117/75
--- NOTE | 2020-12-14 08:28 | EKG ---
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
[2020-12-14] MEDS ORDERED: INSU100I13 SQ (08:50)
[2020-12-14] MEDS ORDERED: CLOP75TA PO (09:02)
[2020-12-14] MEDS: HEPARIN 25,000UTS/250ML PREMIX 250 ML IV PRN (09:30)
[2020-12-14] MEDS: IPRATRPIUM/ALBUTEROL 0.5/2.5MG 3 ML NEBU. NEB SCH ×3 (10:18→20:00)
--- NOTE | 2020-12-14 10:50 | NUR ---
Patient transferred to room 258. Report given to MADELINE Pandey.
[2020-12-14 11:00] VITALS: BP 128/86
--- NOTE | 2020-12-14 11:44 | CONS ---
DATE OF CONSULTATION: PULMONARY CONSULTATION ATTENDING PHYSICIAN: Sheree Masters MD. REASON FOR CONSULTATION: Respiratory failure, CHF. HISTORY OF PRESENT ILLNESS: The patient is a 70-year-old male who is obese with a BMI of 35. The patient has a history of severe cardiomyopathy with an EF of 25%. Pulmonary artery systolic pressure was 36. The patient had a left heart catheterization in 11/2020 and it showed severe 3-vessel coronary artery disease including significant left main coronary artery stenosis. He also had evidence of increased left ventricular end-diastolic pressure. He is scheduled to have a coronary artery bypass surgery at [facility] in 3 weeks. He was brought into the hospital with increasing shortness of breath. He had no cough, fever or chills. No chest pains. No nausea, vomiting or diarrhea. He does have lower extremity edema. Chest x-ray was consistent with congestive heart failure with diffuse bilateral lung infiltrates. ABGs showed a pH of 7.47, pCO2 of 30 and a pO2 of 55 on 65% oxygen. Currently, he is on BiPAP at 70% oxygen. He received 40 mg of Lasix. PAST MEDICAL HISTORY: Significant for diabetes type 2, dyslipidemia, hypertension, likely COPD, neuropathy, lower extremity edema. PAST SURGICAL HISTORY: Cholecystectomy and knee replacement. SOCIAL HISTORY: Smoker for 30+ years. ALLERGIES: PENICILLIN. MEDICATIONS: Reviewed as listed in the MRAD including heparin per protocol. REVIEW OF SYSTEMS: Twelve-point system obtained. Pertinent positives discussed in my history of present illness, otherwise noncontributory. All systems that were negative were reviewed as well. FAMILY HISTORY: Noncontributory to lungs. PHYSICAL EXAMINATION: VITAL SIGNS: He is afebrile, blood pressure stable, pulse ox 92%-96% on 70% FiO2. NECK: Supple. LUNGS: With crackles posteriorly. CARDIOVASCULAR: With a regular rate. ABDOMEN: Soft, obese. EXTREMITIES: With 2+ pitting edema. LABORATORY DATA: Reviewed. ABG discussed in my history of present illness. BUN is 26, creatinine 1.5. INR 1.1. White cell count 8.7. IMPRESSION: 1. Acute hypoxic respiratory failure secondary to diffuse interstitial infiltrates consistent with congestive heart failure. He has likely acute on chronic systolic and diastolic heart failure and NSTMI 2. The patient with known cardiomyopathy with ejection fraction of 25% and severe 3-vessel coronary artery disease including left main coronary artery stenosis. Awaiting coronary artery bypass grafting 3. History of tobacco use, likely chronic obstructive pulmonary disease. 4. Mild acute kidney injury. 5. Underlying morbid obesity, cannot exclude sleep apnea. 6. Elevated troponin levels, NSTMIS RECOMMENDATIONS: 1. Continue present aggressive diuresis. 2. Follow up chest x-ray in the next 24 hours post-diuresis. 3. We will repeat COVID-19 test. Low clinical suspicion. 4. Heparin per protocol per Cardiology. 5. Anti-ischemic medications per Cardiology. 6. Need expedited re-vascularization. 6. Discussed with RN and RT. Chart reviewed, imaging studies reviewed. Critical care time 33 minutes. GEOFF FRANCISCO MD DR: LANG/hermila JOB#: [id number] / [id number]
[2020-12-14] MEDS ORDERED: LISINOPRIL 20 MG TABLET PO SCH (12:00)
[2020-12-14] MEDS ORDERED: CLOPIDOGREL BISULFATE 75 MG TABLET PO SCH (12:00)
[2020-12-14] MEDS: CYANOCOBALAMIN (VITAMIN B-12) 1,000 MCG TABLET. PO SCH (12:18)
[2020-12-14] MEDS: CARVEDILOL 12.5 MG TABLET. PO SCH ×2 (12:18→17:24)
[2020-12-14] MEDS: ASPIRIN CHEWABLE 81 MG TABLET. PO SCH (12:18)
[2020-12-14] MEDS: ISOSORBIDE MONONITRATE ER 30 MG TAB.ER.24H PO SCH (12:18)
--- NOTE | 2020-12-14 13:27 | PDOC2 ---
WENDY MCCRACKEN [employer]OW [employer]OR INSTALLER 12/14/20 1326: CARDIAC CONSULT DATE OF CONSULT Date of Consult DATE: 12/14/20 TIME: 1030 REASON FOR CONSULT Reason for Consult: CHF exacerbation REFERRING PHYSICIAN Referring Physician: Jass SOURCE Source: Chart review, Patient HISTORY OF PRESENT ILLNESS HISTORY OF PRESENT ILLNESS This is a pleasant 70 yo male admitted for complains of shortness of breath. This has increased in the last 3 days and positive for orthopnea, PND and leg swelling. He has had recent LHC and noted with 3VD and needing CABG which has been scheduled 3 weeks from now. Also noted with ICM with EF at 25%. Also have intermittent chest pain which is better at the moment. He has been taking his home medications regularly. No fever or chills. No anosmia, ageusia. PAST MEDICAL HISTORY Cardiovascular: CAD, CHF, HTN, Hyperlipidemia, Other (ICM; chronic RBBB) Pulmonary: COPD CENTRAL NERVOUS SYSTEM: Periperal neuropathy GI: GERD Hepatobiliary: No pertinent hx Psych: No pertinent hx Musculoskeletal: Osteoarthritis Rheumatologic: No pertinent hx Infectious disease: No pertinent hx ENT: No pertinent hx Renal/: Other (ED) Endocrine: Diabetes (2) PAST SURGICAL HISTORY Past Surgical History: Cholecystectomy, Other (knee surgery x3; LHC/PCI) FAMILY HISTORY Family History: Heart Disease SOCIAL HISTORY Smoke: Quit ALCOHOL: none Drugs: None Lives: with Family CURRENT MEDICATIONS CURRENT MEDICATIONS Current Medications Medications (Trade) Dose Ordered Sig/Agutam Route PRN Reason Start Time Stop Time Status Last Admin Dose Admin Furosemide (Lasix) 40 mg 1X ONCE IVP 12/14/20 06:15 12/14/20 06:16 DC 12/14/20 06:13 Heparin Sodium (Porcine) (Heparin Sodium) 4,000 unit 1X ONCE IV 12/14/20 07:30 12/14/20 07:31 DC 12/14/20 09:30 Heparin Sodium/ Dextrose 250 ml @ 0 mls/hr CONT PRN IV PER PROTOCOL 12/14/20 07:30 12/14/20 09:30 Furosemide (Lasix) 40 mg 1X ONCE IVP 12/14/20 10:30 12/14/20 10:31 DC 12/14/20 10:30 Amlodipine Besylate (Norvasc) 10 mg DAILY PO 12/14/20 12:00 12/14/20 12:17 Aspirin (Aspirin Chewable) 81 mg DAILY PO 12/14/20 12:00 12/14/20 12:18 Clopidogrel Bisulfate (Plavix) 75 mg DAILY PO 12/14/20 12:00 12/14/20 12:18 Cyanocobalamin (Vitamin B-12) 1,000 mcg DAILY PO 12/14/20 12:00 12/14/20 12:18 Isosorbide Mononitrate (Imdur) 30 mg DAILY PO 12/14/20 12:00 12/14/20 12:18 Lisinopril (Prinivil) 40 mg DAILY PO 12/14/20 12:00 12/14/20 12:19 Carvedilol (Coreg) 12.5 mg BIDWMEALS PO 12/14/20 12:00 12/14/20 12:18 ALLERGIES ALLERGIES: Coded Allergies: Penicillins (Verified Allergy, Intermediate, HIVES, 11/23/20) ROS Review of System 14 point ROS evaluated with pertinent positives noted per HPI PHYSICAL EXAM General: Alert, Oriented X3, Cooperative, moderate distress HEENT: Atraumatic, Mucous membr. moist/pink Heart: Regular rate (SR/ST), Other (distant heart sounds) Abdomen: Soft, No tenderness, Other (obese) Extremities: No cyanosis, Other (2+ bilateral LE pitting edema) Skin: No breakdown, No significant lesion Neuro: Normal speech, Sensation intact Psych/Mental Status: Mental status NL, Mood NL MUSCULOSKELETAL: Osteoarthritic changes both hands VITALS/I&O VITALS/I&O: Vital Signs Date Time Temp Pulse Resp B/P (MAP) Pulse Ox O2 Delivery O2 Flow Rate FiO2 12/14/20 12:19 76 128/86 12/14/20 11:45 100 BiPAP/CPAP 12/14/20 11:00 97.7 30 97.7 12/14/20 07:26 10.0 LABS Lab: Laboratory Tests Test 12/14/20 05:33 12/14/20 08:04 12/14/20 08:26 12/14/20 11:20 White Blood Count 8.7 x10^3/uL (4.0-11.0) Red Blood Count 4.93 x10^6/uL (4.30-5.70) Hemoglobin 15.8 g/dL (13.0-17.5) Hematocrit 46.7 % (39.0-53.0) Mean Corpuscular Volume 95 fL (79-100) Mean Corpuscular Hemoglobin 32 pg (25-35) Mean Corpuscular Hemoglobin Concent 34 g/dL (31-37) Red Cell Distribution Width 13.5 % (11.5-14.5) Platelet Count 368 x10^3/uL (140-400) Neutrophils (%) (Auto) 76 % (31-73) H Lymphocytes (%) (Auto) 13 % (24-48) L Monocytes (%) (Auto) 9 % (0-9) Eosinophils (%) (Auto) 1 % (0-3) Basophils (%) (Auto) 1 % (0-3) Neutrophils # (Auto) 6.6 x10^3/uL (1.8-7.7) Lymphocytes # (Auto) 1.2 x10^3/uL (1.0-4.8) Monocytes # (Auto) 0.8 x10^3/uL (0.0-1.1) Eosinophils # (Auto) 0.1 x10^3/uL (0.0-0.7) Basophils # (Auto) 0.1 x10^3/uL (0.0-0.2) Prothrombin Time 13.5 SEC (11.7-14.0) Prothrombin Time INR 1.1 (0.8-1.1) Activated Partial Thromboplast Time 29 SEC (24-38) Sodium Level 134 mmol/L (136-145) L Potassium Level 4.5 mmol/L (3.5-5.1) Chloride Level 99 mmol/L (98-107) Carbon Dioxide Level 22 mmol/L (21-32) Anion Gap 13 (6-14) Blood Urea Nitrogen 26 mg/dL (8-26) Creatinine 1.5 mg/dL (0.7-1.3) H Estimated GFR (Cockcroft-Gault) 46.0 BUN/Creatinine Ratio 17 (6-20) Glucose Level 149 mg/dL (70-99) H Calcium Level 9.5 mg/dL (8.5-10.1) Magnesium Level 1.8 mg/dL (1.8-2.4) Total Bilirubin 0.6 mg/dL (0.2-1.0) Aspartate Amino Transferase (AST) 20 U/L (15-37) Alanine Aminotransferase (ALT) 24 U/L (16-63) Alkaline Phosphatase 111 U/L (46-116) Creatine Kinase 125 U/L (39-308) Creatine Kinase MB (Mass) 4.2 ng/mL (0.0-3.6) H Creatine Kinase MB Relative Index 3.4 % (0-4) Troponin I Quantitative 0.094 ng/mL (0.000-0.055) 1.653 ng/mL (0.000-0.055) DU-Mql-V-Type Natriuretic Peptide 5263 pg/mL (0-124) H Total Protein 7.9 g/dL (6.4-8.2) Albumin 3.0 g/dL (3.4-5.0) L Albumin/Globulin Ratio 0.6 (1.0-1.7) L O2 Saturation 90 % (92-99) L Arterial Blood pH 7.47 (7.35-7.45) H Arterial Blood pCO2 at Patient Temp 32 mmHg (35-46) L Arterial Blood pO2 at Patient Temp 55 mmHg (65-108) L Arterial Blood HCO3 22 mmol/L (21-28) Arterial Blood Base Excess 0 mmol/L (-3-3) FiO2 64%/11l simple mask Glucose (Fingerstick) 167 mg/dL (70-99) H Test 12/14/20 11:25 Glucose (Fingerstick) 129 mg/dL (70-99) H Laboratory Tests 12/14/20 05:33 Laboratory Tests 12/14/20 05:33 ECHOCARDIOGRAM ECHOCARDIOGRAM <Conclusion> The left ventricular systolic function is moderately impaired. Apical wall appears akinetic. The Ejection Fraction is 25%. Tissue Doppler imaging reveals moderate left ventricular diastolic dysfunction. Mild mitral regurgitation. Trace tricuspid regurgitation with an estimated PAP of 36 mmHg. There is no evidence of significant pericardial effusion. DATE: 11/23/20 [id number] HEART CATH HEART CATH Conclusion 1. Severe three-vessel coronary disease including significant left main coronary artery stenosis 2. Severe left ventricle systolic dysfunction with ejection fraction estimated at 25% 3. Elevated left ventricular end-diastolic pressure consistent with acute on chronic systolic and diastolic heart failure Recommendations Cardiothoracic surgery consultation for possible coronary artery bypass surgery. Check 2D echocardiogram to rule out any significant valvular abnormalities. DATE: 11/23/20 [id number] ASSESSMENT/PLAN ASSESSMENT/PLAN 1. Acute on chronic diastolic/systolic CHF: EF at 25% 2. Acute on chronic respiratory failure with COPD and CHF 3. NSTEMI: troponin at 1.6. EKG with baseline RBBB 4. CAD: severe 3VD including the LM from [facility] 11/23/2020 5. ICM 6. Mild NELLA 7. PUI 8. HTN: controlled 9. HLP 10. DM2/DPN Recommendations 1. Lasix therapy 2. Awaiting Covid-19 PCR 3. Continue secondary prevention measures and will add imdur 4. Trend troponin and will repeat EKG 5. Consult pulmonary 6. Will optimize and depending on his symptoms and troponin trend may need to transfer to [facility] as his CABG is not scheduled till 3 weeks out STEFANI PATINO MD 12/14/20 1433: CARDIAC CONSULT ASSESSMENT/PLAN ASSESSMENT/PLAN Patient seen and examined. Agree with TYRE FINISHER AND EXAMINER's assessment and plan. Continue diuresis for acute on chronic systolic heart failure. Non-STEMI, currently chest pain-free. Patient has known three-vessel coronary disease including significant left main coronary stenosis and is currently scheduled for CABG at [facility] in 3 weeks We will consider inpatient transfer for possible expedited CABG if patient rules out for Covid Thank you for your consultation WENDY MCCRACKEN APRN Dec 14, 2020 13:26 STEFANI PATINO MD Dec 14, 2020 14:33
[2020-12-14] MEDS ORDERED: LABETALOL 20 MG/4 ML DISP.SYRIN. IVP PRN (14:45)
--- NOTE | 2020-12-14 14:47 | EKG ---
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
[2020-12-14 15:00] VITALS: BP 119/68
--- NOTE | 2020-12-14 16:10 | PDOC ---
Provider Note Date of Service: DATE: 12/14/20 TIME: 16:09 Provider Note Pt seen.H&P dictated.#[id number] Justifications for Admission Other Justification VIKI HODGES MD Dec 14, 2020 16:10
[2020-12-14] MEDS: FUROSEMIDE 40 MG/4 ML VIAL. IVP SCH (17:22)
--- NOTE | 2020-12-14 17:48 | HP ---
ADMIT DATE: 12/14/2020 MEDICAL HISTORY AND PHYSICAL REASON FOR ADMISSION TO THE HOSPITAL: Unstable angina, congestive heart failure, acute on chronic systolic heart failure. HISTORY OF PRESENT ILLNESS: The patient is a 70-year-old male. The patient was seen last in October with shortness of breath, exacerbation. The patient was referred to physical therapy director at [place]. The patient had echo, shows 25% ejection fraction. Cardiac catheterization shows 3-vessel disease. The patient was referred to CT surgeon at [facility] and the patient was supposed to schedule and have a heart bypass surgery in a couple of weeks. In the meantime, he had developed shortness of breath for last 3 days and swelling and came to the Emergency Room. Chest x-ray shows congestive heart failure. Troponin borderline elevated, was started on heparin drip. Cardiology, Pulmonary was consulted. The patient was also placed on BiPAP because of hypoxia and shortness of breath/pulmonary edema. PAST MEDICAL HISTORY: Coronary artery disease, 3-vessel by cardiac catheterization in November, congestive heart failure, chronic systolic ejection fraction 25%, hypertension, hyperlipidemia, COPD, peripheral neuropathy, diabetes. PAST SURGICAL HISTORY: Cardiac catheterization last month, gallbladder surgery, knee surgery. FAMILY HISTORY: Positive for heart disease. SOCIAL HISTORY: Smoked in the past, quit couple of years ago. Denies alcohol or drug abuse. ALLERGIES: PENICILLIN. MEDICATIONS: Here he is taking Lasix 40 mg, amlodipine 10 mg, aspirin 81 mg, Plavix 75 mg, B12 1000 mcg, isosorbide 30 mg, lisinopril 40 mg, Coreg 12.5 mg. REVIEW OF SYSTEMS: RESPIRATORY: Complains of shortness of breath. Denies any chest pain. GASTROINTESTINAL: No nausea or vomiting. Rest of the 14-system was reviewed and negative. PHYSICAL EXAMINATION: GENERAL: Elderly male is short of breath. He is on BiPAP, moderate distress. VITAL SIGNS: At the time of admission shows a temperature 98, pulse 93, respirations 32, blood pressure 139/71, 93 saturation on BiPAP. HEENT: Head is atraumatic. Pupils equal. Oral cavity: No congestion. NECK: Supple. Thyroid not enlarged. JVD not elevated. CHEST: Symmetrical. CARDIOVASCULAR: S1, S2. LUNGS: Crackles at the bases, one third diminished breath sounds on the right side. ABDOMEN: Obese. No mass palpable. EXTERNAL GENITALIA: No Ny. Has been deferred. EXTREMITIES: 1-2+ edema in lower extremities, right, 1+ on the left leg. NEUROLOGIC: Moving all extremities. No focal deficits noted. LABORATORY DATA: Shows a white count of 8, hemoglobin 15, platelets 368. INR 1.1. Electrolytes show sodium 134, potassium 4.4, chloride 99, bicarbonate 22, BUN 26, creatinine 1.5, glucose 149. LFTs normal. BNP 5000. Troponin 0.094, went up to 1.6. Chest x-ray shows congestive heart failure, pulmonary edema, right pleural effusion. FINAL IMPRESSION: 1. Acute shortness of breath secondary to pulmonary edema. 2. Unstable angina. 3. Coronary artery disease. Recent cardiac catheterization shows 3-vessel disease. The patient is scheduled to have a heart bypass surgery in a couple of weeks. 4. Hypertension. 5. Hyperlipidemia. 6. Obesity. 7. Chronic obstructive pulmonary disease. PLAN: At this time, was admit to hospital, seen by Cardiology. Cardiac enzymes, troponin. The patient is started on heparin drip and also Pulmonary consult for BiPAP. Optimize medical treatment, probably will try to speed up his heart bypass surgery to next week. VIKI HODGES MD DR: BHARGAVI/hermila JOB#: [id number] / [id number]
[2020-12-14 19:45] VITALS: BP 106/63
[2020-12-14] MEDS: INSULIN GLARGINE SYRINGE. SQ SCH (21:10)
[2020-12-14] MEDS: ZOLPIDEM 5 MG TABLET. PO PRN (21:11)
[2020-12-14 23:10] VITALS: BP 121/70
[2020-12-15 03:40] VITALS: BP 113/67
[2020-12-15] MEDS: HEPARIN 25,000UTS/250ML PREMIX 250 ML IV PRN ×2 (04:29→23:33)
[2020-12-15 07:00] VITALS: BP 119/70
--- NOTE | 2020-12-15 07:34 | RAD ---
AP chest. HISTORY: CHF AP view was taken of the chest. There is a right pleural effusion. There is mild vascular congestion. There is atelectasis or infiltrate in the lung bases. There's been a slight improvement compared to one day ago. IMPRESSION: 1. Vascular congestion and heart failure with slight improvement. 2. Basilar atelectasis or infiltrates or edema. 3. Right effusion. Electronically signed by: Newton Jarquin MD (12/15/2020 7:32 AM) [facility]
[2020-12-15] MEDS: INSULIN LISPRO 300 UNITS/3 ML VIAL. SQ SCH ×3 (08:00→16:39)
[2020-12-15] MEDS: IPRATRPIUM/ALBUTEROL 0.5/2.5MG 3 ML NEBU. NEB SCH ×4 (08:05→20:00)
[2020-12-15] MEDS: CYANOCOBALAMIN (VITAMIN B-12) 1,000 MCG TABLET. PO SCH (08:31)
[2020-12-15] MEDS: ASPIRIN CHEWABLE 81 MG TABLET. PO SCH (08:31)
[2020-12-15] MEDS: FUROSEMIDE 40 MG/4 ML VIAL. IVP SCH (08:32)
[2020-12-15] MEDS: CARVEDILOL 12.5 MG TABLET. PO SCH ×2 (08:32→18:28)
[2020-12-15] MEDS: ISOSORBIDE MONONITRATE ER 30 MG TAB.ER.24H PO SCH (08:33)
[2020-12-15 09:08] LABS: BASO % 1 % (0-3); EOS # 0.2 x10^3/uL (0.0-0.7); EOS % 3 % (0-3); HEMATOCRIT 42.2 % (39.0-53.0); HEMOGLOBIN 14.5 g/dL (13.0-17.5); LYMPH % 17 % (24-48); MEAN CORPUSCULAR HEMOGLOBIN 32 pg (25-35); MEAN CORPUSCULAR HGB CONC 34 g/dL (31-37); MEAN CORPUSCULAR VOLUME 94 fL (79-100); MONO # 0.7 x10^3/uL (0.0-1.1); MONO % 11 % (0-9); NEUT # 4.1 x10^3/uL (1.8-7.7); NEUT % 68 % (31-73); PLATELET COUNT 305 x10^3/uL (140-400); RED BLOOD COUNT 4.47 x10^6/uL (4.30-5.70); RED CELL DISTRIBUTION WIDTH 13.9 % (11.5-14.5)
[2020-12-15 09:24] LABS: CALCIUM 9.4 mg/dL (8.5-10.1); CREATININE 1.8 mg/dL (0.7-1.3); GFR 37.3; POTASSIUM 4.5 mmol/L (3.5-5.1)
--- NOTE | 2020-12-15 10:39 | PDOC ---
PULMONARY PROGRESS NOTES DATE: 12/15/20 TIME: 10:35 Subjective feels better off BIPAP, on canula Vitals Vital Signs Date Time Temp Pulse Resp B/P (MAP) Pulse Ox O2 Delivery O2 Flow Rate FiO2 12/15/20 08:34 60 119/70 12/15/20 08:09 92 Nasal Cannula 6.0 12/15/20 07:00 97.2 20 97.2 General: Alert, No acute distress Lungs: Clear Cardiovascular: S1 Abdomen: Soft Neuro Exam: Alert Extremities: Other (1+edema) Labs Laboratory Tests Test 12/14/20 05:33 12/14/20 08:04 12/14/20 08:26 12/14/20 10:35 White Blood Count 8.7 x10^3/uL (4.0-11.0) Red Blood Count 4.93 x10^6/uL (4.30-5.70) Hemoglobin 15.8 g/dL (13.0-17.5) Hematocrit 46.7 % (39.0-53.0) Mean Corpuscular Volume 95 fL (79-100) Mean Corpuscular Hemoglobin 32 pg (25-35) Mean Corpuscular Hemoglobin Concent 34 g/dL (31-37) Red Cell Distribution Width 13.5 % (11.5-14.5) Platelet Count 368 x10^3/uL (140-400) Neutrophils (%) (Auto) 76 % (31-73) Lymphocytes (%) (Auto) 13 % (24-48) Monocytes (%) (Auto) 9 % (0-9) Eosinophils (%) (Auto) 1 % (0-3) Basophils (%) (Auto) 1 % (0-3) Neutrophils # (Auto) 6.6 x10^3/uL (1.8-7.7) Lymphocytes # (Auto) 1.2 x10^3/uL (1.0-4.8) Monocytes # (Auto) 0.8 x10^3/uL (0.0-1.1) Eosinophils # (Auto) 0.1 x10^3/uL (0.0-0.7) Basophils # (Auto) 0.1 x10^3/uL (0.0-0.2) Prothrombin Time 13.5 SEC (11.7-14.0) Prothromb Time International Ratio 1.1 (0.8-1.1) Activated Partial Thromboplast Time 29 SEC (24-38) Sodium Level 134 mmol/L (136-145) Potassium Level 4.5 mmol/L (3.5-5.1) Chloride Level 99 mmol/L (98-107) Carbon Dioxide Level 22 mmol/L (21-32) Anion Gap 13 (6-14) Blood Urea Nitrogen 26 mg/dL (8-26) Creatinine 1.5 mg/dL (0.7-1.3) Estimated GFR (Cockcroft-Gault) 46.0 BUN/Creatinine Ratio 17 (6-20) Glucose Level 149 mg/dL (70-99) Calcium Level 9.5 mg/dL (8.5-10.1) Magnesium Level 1.8 mg/dL (1.8-2.4) Total Bilirubin 0.6 mg/dL (0.2-1.0) Aspartate Amino Transf (AST/SGOT) 20 U/L (15-37) Alanine Aminotransferase (ALT/SGPT) 24 U/L (16-63) Alkaline Phosphatase 111 U/L (46-116) Creatine Kinase 125 U/L (39-308) Creatine Kinase MB (Mass) 4.2 ng/mL (0.0-3.6) Creatine Kinase MB Relative Index 3.4 % (0-4) Troponin I Quantitative 0.094 ng/mL (0.000-0.055) MY-Ftx-E-Type Natriuretic Peptide 5263 pg/mL (0-124) Total Protein 7.9 g/dL (6.4-8.2) Albumin 3.0 g/dL (3.4-5.0) Albumin/Globulin Ratio 0.6 (1.0-1.7) O2 Saturation 90 % (92-99) Arterial Blood pH 7.47 (7.35-7.45) Arterial Blood pCO2 at Patient Temp 32 mmHg (35-46) Arterial Blood pO2 at Patient Temp 55 mmHg (65-108) Arterial Blood HCO3 22 mmol/L (21-28) Arterial Blood Base Excess 0 mmol/L (-3-3) FiO2 64%/11l simple mask Glucose (Fingerstick) 167 mg/dL (70-99) Coronavirus (PCR) Not detected (Not Detected) Test 12/14/20 11:20 12/14/20 11:25 12/14/20 15:25 12/14/20 16:42 Troponin I Quantitative 1.653 ng/mL (0.000-0.055) 3.600 ng/mL (0.000-0.055) Glucose (Fingerstick) 129 mg/dL (70-99) 126 mg/dL (70-99) Heparin Anti-Xa Act, Unfractionated 0.20 IU/mL (0.30-0.70) Test 12/14/20 20:56 12/14/20 22:10 12/15/20 07:22 12/15/20 07:50 Glucose (Fingerstick) 147 mg/dL (70-99) 140 mg/dL (70-99) Heparin Anti-Xa Act, Unfractionated 0.42 IU/mL (0.30-0.70) 0.34 IU/mL (0.30-0.70) White Blood Count 6.0 x10^3/uL (4.0-11.0) Red Blood Count 4.47 x10^6/uL (4.30-5.70) Hemoglobin 14.5 g/dL (13.0-17.5) Hematocrit 42.2 % (39.0-53.0) Mean Corpuscular Volume 94 fL (79-100) Mean Corpuscular Hemoglobin 32 pg (25-35) Mean Corpuscular Hemoglobin Concent 34 g/dL (31-37) Red Cell Distribution Width 13.9 % (11.5-14.5) Platelet Count 305 x10^3/uL (140-400) Neutrophils (%) (Auto) 68 % (31-73) Lymphocytes (%) (Auto) 17 % (24-48) Monocytes (%) (Auto) 11 % (0-9) Eosinophils (%) (Auto) 3 % (0-3) Basophils (%) (Auto) 1 % (0-3) Neutrophils # (Auto) 4.1 x10^3/uL (1.8-7.7) Lymphocytes # (Auto) 1.0 x10^3/uL (1.0-4.8) Monocytes # (Auto) 0.7 x10^3/uL (0.0-1.1) Eosinophils # (Auto) 0.2 x10^3/uL (0.0-0.7) Basophils # (Auto) 0.0 x10^3/uL (0.0-0.2) Sodium Level 136 mmol/L (136-145) Potassium Level 4.5 mmol/L (3.5-5.1) Chloride Level 98 mmol/L (98-107) Carbon Dioxide Level 28 mmol/L (21-32) Anion Gap 10 (6-14) Blood Urea Nitrogen 33 mg/dL (8-26) Creatinine 1.8 mg/dL (0.7-1.3) Estimated GFR (Cockcroft-Gault) 37.3 Glucose Level 110 mg/dL (70-99) Calcium Level 9.4 mg/dL (8.5-10.1) Triglycerides Level 84 mg/dL (0-150) Cholesterol Level 190 mg/dL (0-200) LDL Cholesterol, Calculated 126 mg/dL (0-100) VLDL Cholesterol, Calculated 17 mg/dL (0-40) Non-HDL Cholesterol Calculated 143 mg/dL (0-129) HDL Cholesterol 47 mg/dL (40-60) Cholesterol/HDL Ratio 4.0 Thyroid Stimulating Hormone (TSH) 12.686 uIU/mL (0.358-3.74) Laboratory Tests Test 12/14/20 11:20 12/14/20 11:25 12/14/20 15:25 12/14/20 16:42 Troponin I Quantitative 1.653 ng/mL (0.000-0.055) 3.600 ng/mL (0.000-0.055) Glucose (Fingerstick) 129 mg/dL (70-99) 126 mg/dL (70-99) Heparin Anti-Xa Act, Unfractionated 0.20 IU/mL (0.30-0.70) Test 12/14/20 20:56 12/14/20 22:10 12/15/20 07:22 12/15/20 07:50 Glucose (Fingerstick) 147 mg/dL (70-99) 140 mg/dL (70-99) Heparin Anti-Xa Act, Unfractionated 0.42 IU/mL (0.30-0.70) 0.34 IU/mL (0.30-0.70) White Blood Count 6.0 x10^3/uL (4.0-11.0) Red Blood Count 4.47 x10^6/uL (4.30-5.70) Hemoglobin 14.5 g/dL (13.0-17.5) Hematocrit 42.2 % (39.0-53.0) Mean Corpuscular Volume 94 fL (79-100) Mean Corpuscular Hemoglobin 32 pg (25-35) Mean Corpuscular Hemoglobin Concent 34 g/dL (31-37) Red Cell Distribution Width 13.9 % (11.5-14.5) Platelet Count 305 x10^3/uL (140-400) Neutrophils (%) (Auto) 68 % (31-73) Lymphocytes (%) (Auto) 17 % (24-48) Monocytes (%) (Auto) 11 % (0-9) Eosinophils (%) (Auto) 3 % (0-3) Basophils (%) (Auto) 1 % (0-3) Neutrophils # (Auto) 4.1 x10^3/uL (1.8-7.7) Lymphocytes # (Auto) 1.0 x10^3/uL (1.0-4.8) Monocytes # (Auto) 0.7 x10^3/uL (0.0-1.1) Eosinophils # (Auto) 0.2 x10^3/uL (0.0-0.7) Basophils # (Auto) 0.0 x10^3/uL (0.0-0.2) Sodium Level 136 mmol/L (136-145) Potassium Level 4.5 mmol/L (3.5-5.1) Chloride Level 98 mmol/L (98-107) Carbon Dioxide Level 28 mmol/L (21-32) Anion Gap 10 (6-14) Blood Urea Nitrogen 33 mg/dL (8-26) Creatinine 1.8 mg/dL (0.7-1.3) Estimated GFR (Cockcroft-Gault) 37.3 Glucose Level 110 mg/dL (70-99) Calcium Level 9.4 mg/dL (8.5-10.1) Triglycerides Level 84 mg/dL (0-150) Cholesterol Level 190 mg/dL (0-200) LDL Cholesterol, Calculated 126 mg/dL (0-100) VLDL Cholesterol, Calculated 17 mg/dL (0-40) Non-HDL Cholesterol Calculated 143 mg/dL (0-129) HDL Cholesterol 47 mg/dL (40-60) Cholesterol/HDL Ratio 4.0 Thyroid Stimulating Hormone (TSH) 12.686 uIU/mL (0.358-3.74) Medications Active Scripts Medications Dose Route/Sig Max Daily Dose Days Date Category Dose Instructions Clopidogrel (Clopidogrel Bisulfate) 75 Mg Tablet 1 Tab PO DAILY 12/14/20 Reported Lantus Solostar (Insulin Glargine,Hum.rec.anlog) 100 Unit/1 Ml Insuln.pen 45 Unit SQ QHS 12/14/20 Reported Novolog (Insulin Aspart) 100 Unit/1 Ml Cartridge 10 Unit SQ TIDAC 11/23/20 Reported Aspirin 81 Mg Tab.chew 81 Mg PO DAILY 11/23/20 Reported Isosorbide Mononitrate Er (Isosorbide Mononitrate) 30 Mg Tab.er.24h 30 Mg PO DAILY 11/23/20 Reported Metronidazole 500 Mg Tablet 1 Tab PO BID 7 11/23/20 Reported Lisinopril 40 Mg Tablet 1 Tab PO DAILY 11/23/20 Reported Metformin Hcl 500 Mg Tablet 500 Mg PO BIDWMEALS 11/23/20 Reported do not take for 48 hours, next dose Thursday evening 11/25 Amlodipine Besylate 10 Mg Tablet 10 Mg PO DAILY 11/23/20 Reported B-12 (Cyanocobalamin (Vitamin B-12)) 1,000 Mcg Tablet 1 Tab PO DAILY 30 11/23/20 Reported Carvedilol 25 Mg Tablet 12.5 Mg PO BIDWMEALS 11/23/20 Reported Comments cxr 12/15 improving CHF, RLL effusion Impression . 1. Acute hypoxic respiratory failure secondary to diffuse interstitial infiltrates consistent with congestive heart failure. He has likely acute on chronic systolic and diastolic heart failure and NSTMI 2. The patient with known cardiomyopathy with ejection fraction of 25% and severe 3-vessel coronary artery disease including left main coronary artery stenosis. Awaiting coronary artery bypass grafting 3. History of tobacco use, likely chronic obstructive pulmonary disease. 4. Mild acute kidney injury. 5. Underlying morbid obesity, cannot exclude sleep apnea. 6. Elevated troponin levels, NSTMIS 7. Abnormal CXR, c/w CHF. Plan . 1. Continue present diuresis.closely watch renal function. Cr increased 2. Follow up chest x-ray 12/15 with improving CHF post-diuresis. 3. Neg COVID-19 test. Low clinical suspicion. 4. Heparin per protocol per Cardiology. 5. Anti-ischemic medications per Cardiology. 6. Need expedited re-vascularization. 7. Discussed with RN 8. Continue suman tirado AMAN U MD Dec 15, 2020 10:39
--- NOTE | 2020-12-15 10:40 | PDOC ---
IM PROGRESS NOTES- Subjective Subjective No complaints of chest pains. Dyspnea is improving. Objective Vitals/I&O Vital Signs Date Time Temp Pulse Resp B/P (MAP) Pulse Ox O2 Delivery O2 Flow Rate FiO2 12/15/20 08:34 60 119/70 12/15/20 08:09 92 Nasal Cannula 6.0 12/15/20 07:00 97.2 20 97.2 I & O 12/14/20 12/14/20 12/15/20 15:00 23:00 07:00 Intake Total 200 ml 160 ml Output Total 350 ml 225 ml 700 ml Balance -350 ml -25 ml -540 ml Physical Exam Physical Exam General appearance - alert, not in any acute distress and oriented to person, place, and time Mental Status - alert, oriented to person, place, and time, affect appropriate to mood Head - normal Chest -decreased breath sounds at bases Heart - S1 and S2 normal Abdomen - soft, non tender, Neurological - alert and oriented Extremities -edema + Skin - warm and dry Labs Laboratory Tests Test 12/14/20 11:20 12/14/20 11:25 12/14/20 15:25 12/14/20 16:42 Troponin I Quantitative 1.653 ng/mL (0.000-0.055) 3.600 ng/mL (0.000-0.055) Glucose (Fingerstick) 129 mg/dL (70-99) H 126 mg/dL (70-99) H Heparin Anti-Xa Act, Unfractionated 0.20 IU/mL (0.30-0.70) L Test 12/14/20 20:56 12/14/20 22:10 12/15/20 07:22 12/15/20 07:50 Glucose (Fingerstick) 147 mg/dL (70-99) H 140 mg/dL (70-99) H Heparin Anti-Xa Act, Unfractionated 0.42 IU/mL (0.30-0.70) 0.34 IU/mL (0.30-0.70) White Blood Count 6.0 x10^3/uL (4.0-11.0) Red Blood Count 4.47 x10^6/uL (4.30-5.70) Hemoglobin 14.5 g/dL (13.0-17.5) Hematocrit 42.2 % (39.0-53.0) Mean Corpuscular Volume 94 fL (79-100) Mean Corpuscular Hemoglobin 32 pg (25-35) Mean Corpuscular Hemoglobin Concent 34 g/dL (31-37) Red Cell Distribution Width 13.9 % (11.5-14.5) Platelet Count 305 x10^3/uL (140-400) Neutrophils (%) (Auto) 68 % (31-73) Lymphocytes (%) (Auto) 17 % (24-48) L Monocytes (%) (Auto) 11 % (0-9) H Eosinophils (%) (Auto) 3 % (0-3) Basophils (%) (Auto) 1 % (0-3) Neutrophils # (Auto) 4.1 x10^3/uL (1.8-7.7) Lymphocytes # (Auto) 1.0 x10^3/uL (1.0-4.8) Monocytes # (Auto) 0.7 x10^3/uL (0.0-1.1) Eosinophils # (Auto) 0.2 x10^3/uL (0.0-0.7) Basophils # (Auto) 0.0 x10^3/uL (0.0-0.2) Sodium Level 136 mmol/L (136-145) Potassium Level 4.5 mmol/L (3.5-5.1) Chloride Level 98 mmol/L (98-107) Carbon Dioxide Level 28 mmol/L (21-32) Anion Gap 10 (6-14) Blood Urea Nitrogen 33 mg/dL (8-26) H Creatinine 1.8 mg/dL (0.7-1.3) H Estimated GFR (Cockcroft-Gault) 37.3 Glucose Level 110 mg/dL (70-99) H Calcium Level 9.4 mg/dL (8.5-10.1) Triglycerides Level 84 mg/dL (0-150) Cholesterol Level 190 mg/dL (0-200) LDL Cholesterol, Calculated 126 mg/dL (0-100) H VLDL Cholesterol, Calculated 17 mg/dL (0-40) Non-HDL Cholesterol Calculated 143 mg/dL (0-129) H HDL Cholesterol 47 mg/dL (40-60) Cholesterol/HDL Ratio 4.0 Thyroid Stimulating Hormone (TSH) 12.686 uIU/mL (0.358-3.74) H Laboratory Tests 12/15/20 07:50 Laboratory Tests 12/15/20 07:50 Meds Current Medications Medications (Trade) Dose Ordered Sig/Gautam Route PRN Reason Start Time Stop Time Status Last Admin Dose Admin Albuterol/ Ipratropium (Duoneb) 3 ml RTQID NEB 12/14/20 12:00 12/15/20 08:05 Amlodipine Besylate (Norvasc) 10 mg DAILY PO 12/14/20 12:00 12/15/20 08:34 Aspirin (Aspirin Chewable) 81 mg DAILY PO 12/14/20 12:00 12/15/20 08:31 Clopidogrel Bisulfate (Plavix) 75 mg DAILY PO 12/14/20 12:00 12/14/20 14:43 DC 12/14/20 12:18 Cyanocobalamin (Vitamin B-12) 1,000 mcg DAILY PO 12/14/20 12:00 12/15/20 08:31 Isosorbide Mononitrate (Imdur) 30 mg DAILY PO 12/14/20 12:00 12/15/20 08:33 Lisinopril (Prinivil) 40 mg DAILY PO 12/14/20 12:00 12/14/20 14:43 DC 12/14/20 12:19 Carvedilol (Coreg) 12.5 mg BIDWMEALS PO 12/14/20 12:00 12/15/20 08:32 Insulin Glargine (Lantus Syringe) 45 unit QHS SQ 12/14/20 21:00 12/14/20 21:10 Furosemide (Lasix) 40 mg DAILY IVP 12/14/20 16:00 12/15/20 08:32 Zolpidem Tartrate (Ambien) 5 mg PRN QHS PRN PO INSOMNIA 12/14/20 18:00 12/14/20 21:11 Assessment Assessment 1. Acute shortness of breath secondary to pulmonary edema. 2. Unstable angina. 3. Coronary artery disease. Recent cardiac catheterization shows 3-vessel disease. The patient is scheduled to have a heart bypass surgery in a couple of weeks. 4. Hypertension. 5. Hyperlipidemia. 6. Obesity. 7. Chronic obstructive pulmonary disease. PLAN: Acute congestive heart failure with ejection fraction of 25%. And severe coronary artery disease. - troponin level has increased to 3.6. Creatinine has increased to 1.8. Continue IV diuresis. Cardiology and pulmonary consults reviewed and appreciated. Hypothyroidism-TSH is 12. However he also has critical illness at this time and this may also affect TSH. We will let Dr. Masters decide if any adjustments need to be made. Clinically improving Plan Plan For more details regarding further plans, please refer to the orders. Justifications for Admission Other Justification ALFREDO DALE MD Dec 15, 2020 10:40
[2020-12-15 11:21] VITALS: BP 103/54
[2020-12-15 15:00] VITALS: BP 132/64
--- NOTE | 2020-12-15 16:16 | PDOC ---
CARDIOLOGY PROGRESS NOTE SUBJECTIVE: Reports minimal chest pain. No dyspnea. Feels better overall. OBJECTIVE: Vital Signs/I&O: Vital Signs Date Time Temp Pulse Resp B/P (MAP) Pulse Ox O2 Delivery O2 Flow Rate FiO2 12/15/20 15:51 Nasal Cannula 5.0 12/15/20 15:00 98.1 65 24 132/64 (86) 97 98.1 l I & O 12/14/20 12/14/20 12/15/20 15:00 23:00 07:00 Intake Total 200 ml 160 ml Output Total 350 ml 225 ml 700 ml Balance -350 ml -25 ml -540 ml Objective: Normal heart tones. Clear lung hodge. Obese abdomen Trace lower extremity edema CURRENT MEDICATIONS: Continue current medications including Coreg, aspirin, Lasix, Imdur, statin, heparin drip DIAGNOSTIC TESTING: Labs: Laboratory Tests 12/15/20 07:50 Laboratory Tests Test 12/14/20 16:42 12/14/20 20:56 12/14/20 22:10 12/15/20 07:22 Glucose (Fingerstick) 126 mg/dL (70-99) H 147 mg/dL (70-99) H 140 mg/dL (70-99) H Heparin Anti-Xa Act, Unfractionated 0.42 IU/mL (0.30-0.70) Test 12/15/20 07:50 12/15/20 11:08 White Blood Count 6.0 x10^3/uL (4.0-11.0) Red Blood Count 4.47 x10^6/uL (4.30-5.70) Hemoglobin 14.5 g/dL (13.0-17.5) Hematocrit 42.2 % (39.0-53.0) Mean Corpuscular Volume 94 fL (79-100) Mean Corpuscular Hemoglobin 32 pg (25-35) Mean Corpuscular Hemoglobin Concent 34 g/dL (31-37) Red Cell Distribution Width 13.9 % (11.5-14.5) Platelet Count 305 x10^3/uL (140-400) Neutrophils (%) (Auto) 68 % (31-73) Lymphocytes (%) (Auto) 17 % (24-48) L Monocytes (%) (Auto) 11 % (0-9) H Eosinophils (%) (Auto) 3 % (0-3) Basophils (%) (Auto) 1 % (0-3) Neutrophils # (Auto) 4.1 x10^3/uL (1.8-7.7) Lymphocytes # (Auto) 1.0 x10^3/uL (1.0-4.8) Monocytes # (Auto) 0.7 x10^3/uL (0.0-1.1) Eosinophils # (Auto) 0.2 x10^3/uL (0.0-0.7) Basophils # (Auto) 0.0 x10^3/uL (0.0-0.2) Heparin Anti-Xa Act, Unfractionated 0.34 IU/mL (0.30-0.70) Sodium Level 136 mmol/L (136-145) Potassium Level 4.5 mmol/L (3.5-5.1) Chloride Level 98 mmol/L (98-107) Carbon Dioxide Level 28 mmol/L (21-32) Anion Gap 10 (6-14) Blood Urea Nitrogen 33 mg/dL (8-26) H Creatinine 1.8 mg/dL (0.7-1.3) H Estimated GFR (Cockcroft-Gault) 37.3 Glucose Level 110 mg/dL (70-99) H Calcium Level 9.4 mg/dL (8.5-10.1) Cholesterol Level 190 mg/dL (0-200) LDL Cholesterol, Calculated 126 mg/dL (0-100) H VLDL Cholesterol, Calculated 17 mg/dL (0-40) Non-HDL Cholesterol Calculated 143 mg/dL (0-129) H Cholesterol/HDL Ratio 4.0 Thyroid Stimulating Hormone (TSH) 12.686 uIU/mL (0.358-3.74) H Glucose (Fingerstick) 115 mg/dL (70-99) H ASSESSMENT: 1. Ischemic cardiomyopathy awaiting CABG at [facility] PLAN: 1. We will continue his preoperative work-up. Plan for transfer to [facility] likely on Thursday for tentative CABG on Thursday. Justicifation of Admission Dx: Justifications for Admission: Justification of Admission Dx: N/A MARIE RODRIGUEZ MD Dec 15, 2020 16:16
[2020-12-15 19:25] VITALS: BP 129/77
[2020-12-15] MEDS: ZOLPIDEM 5 MG TABLET. PO PRN (20:59)
[2020-12-15] MEDS: INSULIN GLARGINE SYRINGE. SQ SCH (21:02)
[2020-12-15 23:15] VITALS: BP 132/75
[2020-12-16] VITALS (7 sets, daily range): BP systolic 106–121; BP diastolic 61–79
[2020-12-16] MEDS: IPRATRPIUM/ALBUTEROL 0.5/2.5MG 3 ML NEBU. NEB SCH ×4 (07:31→19:35)
[2020-12-16 07:42] LABS: CALCIUM 8.9 mg/dL (8.5-10.1); CREATININE 1.7 mg/dL (0.7-1.3); GFR 39.8; MAGNESIUM 1.6 mg/dL (1.8-2.4); POTASSIUM 3.8 mmol/L (3.5-5.1)
[2020-12-16] MEDS: INSULIN LISPRO 300 UNITS/3 ML VIAL. SQ SCH ×3 (08:00→17:00)
[2020-12-16] MEDS: CYANOCOBALAMIN (VITAMIN B-12) 1,000 MCG TABLET. PO SCH (08:20)
[2020-12-16] MEDS: FUROSEMIDE 40 MG/4 ML VIAL. IVP SCH (08:21)
[2020-12-16] MEDS: CARVEDILOL 12.5 MG TABLET. PO SCH ×2 (08:21→17:53)
[2020-12-16] MEDS: ASPIRIN CHEWABLE 81 MG TABLET. PO SCH (08:21)
[2020-12-16] MEDS: ISOSORBIDE MONONITRATE ER 30 MG TAB.ER.24H PO SCH (08:22)
--- NOTE | 2020-12-16 09:51 | PDOC ---
PULMONARY PROGRESS NOTES DATE: 12/16/20 TIME: 09:50 Subjective feels better off BIPAP, on canula Vitals Vital Signs Date Time Temp Pulse Resp B/P (MAP) Pulse Ox O2 Delivery O2 Flow Rate FiO2 12/16/20 08:22 66 120/79 12/16/20 07:31 92 Nasal Cannula 5.0 12/16/20 07:00 98.1 20 98.1 General: Alert, No acute distress Lungs: Clear Cardiovascular: S1 Abdomen: Soft Neuro Exam: Alert Extremities: Other (1+edema) Labs Laboratory Tests Test 12/14/20 10:35 12/14/20 11:20 12/14/20 11:25 12/14/20 15:25 Coronavirus (PCR) Not detected (Not Detected) Troponin I Quantitative 1.653 ng/mL (0.000-0.055) 3.600 ng/mL (0.000-0.055) Glucose (Fingerstick) 129 mg/dL (70-99) Heparin Anti-Xa Act, Unfractionated 0.20 IU/mL (0.30-0.70) Test 12/14/20 16:42 12/14/20 20:56 12/14/20 22:10 12/15/20 07:22 Glucose (Fingerstick) 126 mg/dL (70-99) 147 mg/dL (70-99) 140 mg/dL (70-99) Heparin Anti-Xa Act, Unfractionated 0.42 IU/mL (0.30-0.70) Test 12/15/20 07:50 12/15/20 11:08 12/15/20 16:22 12/15/20 20:43 White Blood Count 6.0 x10^3/uL (4.0-11.0) Red Blood Count 4.47 x10^6/uL (4.30-5.70) Hemoglobin 14.5 g/dL (13.0-17.5) Hematocrit 42.2 % (39.0-53.0) Mean Corpuscular Volume 94 fL (79-100) Mean Corpuscular Hemoglobin 32 pg (25-35) Mean Corpuscular Hemoglobin Concent 34 g/dL (31-37) Red Cell Distribution Width 13.9 % (11.5-14.5) Platelet Count 305 x10^3/uL (140-400) Neutrophils (%) (Auto) 68 % (31-73) Lymphocytes (%) (Auto) 17 % (24-48) Monocytes (%) (Auto) 11 % (0-9) Eosinophils (%) (Auto) 3 % (0-3) Basophils (%) (Auto) 1 % (0-3) Neutrophils # (Auto) 4.1 x10^3/uL (1.8-7.7) Lymphocytes # (Auto) 1.0 x10^3/uL (1.0-4.8) Monocytes # (Auto) 0.7 x10^3/uL (0.0-1.1) Eosinophils # (Auto) 0.2 x10^3/uL (0.0-0.7) Basophils # (Auto) 0.0 x10^3/uL (0.0-0.2) Heparin Anti-Xa Act, Unfractionated 0.34 IU/mL (0.30-0.70) Sodium Level 136 mmol/L (136-145) Potassium Level 4.5 mmol/L (3.5-5.1) Chloride Level 98 mmol/L (98-107) Carbon Dioxide Level 28 mmol/L (21-32) Anion Gap 10 (6-14) Blood Urea Nitrogen 33 mg/dL (8-26) Creatinine 1.8 mg/dL (0.7-1.3) Estimated GFR (Cockcroft-Gault) 37.3 Glucose Level 110 mg/dL (70-99) Hemoglobin A1c 6.0 % (4.8-5.6) Calcium Level 9.4 mg/dL (8.5-10.1) Triglycerides Level 84 mg/dL (0-150) Cholesterol Level 190 mg/dL (0-200) LDL Cholesterol, Calculated 126 mg/dL (0-100) VLDL Cholesterol, Calculated 17 mg/dL (0-40) Non-HDL Cholesterol Calculated 143 mg/dL (0-129) HDL Cholesterol 47 mg/dL (40-60) Cholesterol/HDL Ratio 4.0 Thyroid Stimulating Hormone (TSH) 12.686 uIU/mL (0.358-3.74) Glucose (Fingerstick) 115 mg/dL (70-99) 125 mg/dL (70-99) 238 mg/dL (70-99) Test 12/16/20 07:06 12/16/20 07:32 Heparin Anti-Xa Act, Unfractionated 0.54 IU/mL (0.30-0.70) Sodium Level 135 mmol/L (136-145) Potassium Level 3.8 mmol/L (3.5-5.1) Chloride Level 100 mmol/L (98-107) Carbon Dioxide Level 26 mmol/L (21-32) Anion Gap 9 (6-14) Blood Urea Nitrogen 32 mg/dL (8-26) Creatinine 1.7 mg/dL (0.7-1.3) Estimated GFR (Cockcroft-Gault) 39.8 Glucose Level 91 mg/dL (70-99) Calcium Level 8.9 mg/dL (8.5-10.1) Magnesium Level 1.6 mg/dL (1.8-2.4) Glucose (Fingerstick) 118 mg/dL (70-99) Laboratory Tests Test 12/15/20 11:08 12/15/20 16:22 12/15/20 20:43 12/16/20 07:06 Glucose (Fingerstick) 115 mg/dL (70-99) 125 mg/dL (70-99) 238 mg/dL (70-99) Heparin Anti-Xa Act, Unfractionated 0.54 IU/mL (0.30-0.70) Sodium Level 135 mmol/L (136-145) Potassium Level 3.8 mmol/L (3.5-5.1) Chloride Level 100 mmol/L (98-107) Carbon Dioxide Level 26 mmol/L (21-32) Anion Gap 9 (6-14) Blood Urea Nitrogen 32 mg/dL (8-26) Creatinine 1.7 mg/dL (0.7-1.3) Estimated GFR (Cockcroft-Gault) 39.8 Glucose Level 91 mg/dL (70-99) Calcium Level 8.9 mg/dL (8.5-10.1) Magnesium Level 1.6 mg/dL (1.8-2.4) Test 12/16/20 07:32 Glucose (Fingerstick) 118 mg/dL (70-99) Medications Active Scripts Medications Dose Route/Sig Max Daily Dose Days Date Category Dose Instructions Clopidogrel (Clopidogrel Bisulfate) 75 Mg Tablet 1 Tab PO DAILY 12/14/20 Reported Lantus Solostar (Insulin Glargine,Hum.rec.anlog) 100 Unit/1 Ml Insuln.pen 45 Unit SQ QHS 12/14/20 Reported Novolog (Insulin Aspart) 100 Unit/1 Ml Cartridge 10 Unit SQ TIDAC 11/23/20 Reported Aspirin 81 Mg Tab.chew 81 Mg PO DAILY 11/23/20 Reported Isosorbide Mononitrate Er (Isosorbide Mononitrate) 30 Mg Tab.er.24h 30 Mg PO DAILY 11/23/20 Reported Metronidazole 500 Mg Tablet 1 Tab PO BID 7 11/23/20 Reported Lisinopril 40 Mg Tablet 1 Tab PO DAILY 11/23/20 Reported Metformin Hcl 500 Mg Tablet 500 Mg PO BIDWMEALS 11/23/20 Reported do not take for 48 hours, next dose Thursday evening 11/25 Amlodipine Besylate 10 Mg Tablet 10 Mg PO DAILY 11/23/20 Reported B-12 (Cyanocobalamin (Vitamin B-12)) 1,000 Mcg Tablet 1 Tab PO DAILY 30 11/23/20 Reported Carvedilol 25 Mg Tablet 12.5 Mg PO BIDWMEALS 11/23/20 Reported Comments cxr 12/15 improving CHF, RLL effusion Impression . 1. Acute hypoxic respiratory failure secondary to diffuse interstitial infiltrates consistent with congestive heart failure. He has likely acute on chronic systolic and diastolic heart failure and NSTMI 2. The patient with known cardiomyopathy with ejection fraction of 25% and severe 3-vessel coronary artery disease including left main coronary artery stenosis. Awaiting coronary artery bypass grafting 3. History of tobacco use, likely chronic obstructive pulmonary disease. 4. Mild acute kidney injury. 5. Underlying morbid obesity, cannot exclude sleep apnea. 6. Elevated troponin levels, NSTMIS 7. Abnormal CXR, c/w CHF. Plan . 1. Continue present diuresis.closely watch renal function. 2. Follow up chest x-ray 12/15 with improving CHF post-diuresis. 3. Neg COVID-19 test. Low clinical suspicion. 4. Heparin per protocol per Cardiology. 5. Anti-ischemic medications per Cardiology. 6. Need expedited re-vascularization. transfer in am to [facility] 7. Discussed with RN 8. Continue canula, prn GEOFF AGUILAR MD Dec 16, 2020 09:51
--- NOTE | 2020-12-16 10:42 | PDOC ---
PROGRESS NOTES Date of Service: DATE: 12/16/20 TIME: 10:37 Subjective Subjective in good spirits, joking around Objective Objective Vital Signs Date Time Temp Pulse Resp B/P (MAP) Pulse Ox O2 Delivery O2 Flow Rate FiO2 12/16/20 08:22 66 120/79 12/16/20 08:00 Bi-pap 12/16/20 07:31 92 5.0 12/16/20 07:00 98.1 20 98.1 Intake and Output0 12/16/20 07:00 Intake Total 2190 ml Output Total 1550 ml Balance 640 ml Intake Oral 2190 ml Output Urine Total 1550 ml # Voids 1 Physical Exam Abdomen: Soft, No tenderness, Other Heart: Regular rate, Other Extremities: No cyanosis, Other General: Alert, Oriented X3, Cooperative, moderate distress HEENT: Atraumatic, Mucous membr. moist/pink MUSCULOSKELETAL: Osteoarthritic changes both hands Neuro: Normal speech, Sensation intact Psych/Mental Status: Mental status NL, Mood NL Skin: No breakdown, No significant lesion Diagnosis Problem List Problems Medical Problems: (1) Acute exacerbation of CHF (congestive heart failure) Status: Acute (2) Acute respiratory failure with hypoxemia Status: Acute (3) Elevated troponin Status: Acute Assessment Assessment 1. Acute shortness of breath secondary to pulmonary edema. 2. Unstable angina.mild non stemi , troponin peaked to 3.0 3. Coronary artery disease. Recent cardiac catheterization shows 3-vessel disease. The patient is scheduled to have a heart bypass surgery in a couple of weeks. 4. Hypertension. 5. Hyperlipidemia. 6. Obesity. 7. Chronic obstructive pulmonary disease. 8.Ac on Ch systolic heart failure,25% EJF PLAN:carotid doppler today heparin drip start on atrovaststin,ldl 125 start on synthroid , tsh 12 cxr improving . will transfer to [facility] tomorrow for CABG cr 1.7 monitor added small dose of Losartin replace Mag, 1.6 today. Acute congestive heart failure with ejection fraction of 25%. And severe coronary artery disease. - troponin level has increased to 3.6. Creatinine has increased to 1.8. Continue IV diuresis. Cardiology and pulmonary consults reviewed and appreciated. Hypothyroidism-TSH is 12. However he also has critical illness at this time and this may also affect TSH. We will let Dr. Masters decide if any adjustments need to be made. Clinically improving Plan Plan of Care Problems Medical Problems: (1) Acute exacerbation of CHF (congestive heart failure) Status: Acute (2) Acute respiratory failure with hypoxemia Status: Acute (3) Elevated troponin Status: Acute Comment Review of Relevant I have reviewed the following items gonsalo (where applicable) has been applied. Labs Laboratory Tests Test 12/15/20 11:08 12/15/20 16:22 12/15/20 20:43 12/16/20 07:06 Glucose (Fingerstick) 115 mg/dL (70-99) 125 mg/dL (70-99) 238 mg/dL (70-99) Heparin Anti-Xa Act, Unfractionated 0.54 IU/mL (0.30-0.70) Sodium Level 135 mmol/L (136-145) Potassium Level 3.8 mmol/L (3.5-5.1) Chloride Level 100 mmol/L (98-107) Carbon Dioxide Level 26 mmol/L (21-32) Anion Gap 9 (6-14) Blood Urea Nitrogen 32 mg/dL (8-26) Creatinine 1.7 mg/dL (0.7-1.3) Estimated GFR (Cockcroft-Gault) 39.8 Glucose Level 91 mg/dL (70-99) Calcium Level 8.9 mg/dL (8.5-10.1) Magnesium Level 1.6 mg/dL (1.8-2.4) Test 12/16/20 07:32 Glucose (Fingerstick) 118 mg/dL (70-99) Medications Current Medications Atorvastatin Calcium (Lipitor) 20 mg QHS PO ; Start 12/16/20 at 21:00 Levothyroxine Sodium (Synthroid) 50 mcg DAILY06 PO ; Start 12/16/20 at 11:30 Losartan Potassium (Cozaar) 25 mg DAILY PO ; Start 12/16/20 at 12:00 Vitals/I & O Vital Sign - Last 24 Hours 12/15/20 12/15/20 12/15/20 12/15/20 11:21 11:52 15:00 15:51 Temp 97.6 98.1 97.6 98.1 Pulse 72 65 Resp 22 24 B/P (MAP) 103/54 (70) 132/64 (86) Pulse Ox 95 99 97 O2 Delivery Nasal Cannula Nasal Cannula Nasal Cannula Nasal Cannula O2 Flow Rate 6.0 6.0 5.0 5.0 12/15/20 12/15/20 12/15/20 12/15/20 18:28 19:19 19:25 23:15 Temp 97.1 97.4 97.1 97.4 Pulse 65 65 63 Resp 22 20 B/P (MAP) 132/64 129/77 (94) 132/75 (94) Pulse Ox 97 91 O2 Delivery Nasal Cannula Nasal Cannula Nasal Cannula O2 Flow Rate 5.0 5.0 5.0 12/16/20 12/16/20 12/16/20 12/16/20 00:03 03:15 07:00 07:31 Temp 97.4 97.1 98.1 97.4 97.1 98.1 Pulse 63 59 66 Resp 22 22 20 B/P (MAP) 112/70 (84) 121/69 (86) 120/79 (93) Pulse Ox 99 98 91 92 O2 Delivery Nasal Cannula Nasal Cannula Nasal Cannula Nasal Cannula O2 Flow Rate 5.0 5.0 5.0 5.0 12/16/20 12/16/20 12/16/20 12/16/20 08:00 08:20 08:21 08:22 Pulse 66 66 66 B/P (MAP) 120/79 120/79 120/79 O2 Delivery Bi-pap Intake and Output 12/15/20 12/15/20 12/16/20 15:00 23:00 07:00 Intake Total 840 ml 1050 ml 300 ml Output Total 600 ml 600 ml 350 ml Balance 240 ml 450 ml -50 ml Justifications for Admission Other Justification VIKI MASTERS MD Dec 16, 2020 10:42
[2020-12-16] MEDS ORDERED: MAGNESIUM SULFATE 2GM 50 ML IV ONE (12:00)
--- NOTE | 2020-12-16 12:13 | RAD ---
BILATERAL DUPLEX CAROTID SONOGRAPHY History: Preoperative evaluation. Technique: Duplex sonography of the cervical portion of both carotid arteries was performed. Real-drake e grayscale, color flow Doppler, and Doppler spectral waveform analysis is performed. Findings: Limited study due to the extent of atherosclerotic plaque as well as tortuous arteries. A few ICA seg ments are not able to be visualized. Right side: Nonvisualized mid cervical ICA and ECA. Peak systolic flow velocity of the CCA is 62 cm/sec. Peak systolic flow velocity of the ICA is 70 cm/sec. The ICA/CCA ratio is 1.1. Peak end diastolic flow velocity of the ICA is 21 cm/sec. Multifocal atheromatous plaque on a background of vessel tortuosity. No visible severe stenosis notin g absent visualization of the mid ICA. Left side: Nonvisualized mid ICA. Peak systolic flow velocity of the CCA is 36 cm/sec. Peak systolic flow velocity of the ICA is 131 cm/sec. The ICA/CCA ratio is 3.6. Peak end diastolic flow velocity of the ICA is 24 cm/sec. Peak systolic flow velocity of the ECA is 112 cm/sec. Multifocal atheromatous plaque of a background of vessel tortuosity. It is difficult to discern if th ere is severe stenosis on the images through the distal ICA were peak systolic velocity is elevated. Vertebral arteries: The left vertebral artery was not visualized. Antegrade flow within the right vertebral artery. IMPRESSION: 1. Limited exam due to the extent of calcified atheromatous plaque and vessel tortuosity. The mid asp ect of both cervical internal carotid arteries were not able to be evaluated nor was the right ECA an d left vertebral artery. 2. Elevated peak systolic velocity within the distal left ICA with an ICA/CCA ratio of 3.6 which woul d indicate a 50-69% stenosis. No evidence for hemodynamically significant stenosis on the right. Give n the limitations of this exam, CT head/neck angiography could be considered to further characterize. 3. Antegrade right vertebral artery flow. As above, nonvisualized left vertebral artery. PQRS Compliance Statement - Stenosis calculations for CT, MR and conventional angiography are based u evette measurement of the distal ICA diameter in accordance with the NASCET methodology. Stenosis calcu lations for carotid ultrasound studies are derived from validated velocity criteria which are known t o correlate with the NASCET methodology. Electronically signed by: EMILY MCINTYRE MD (12/16/2020 12:10 PM) [id number]
[2020-12-16] MEDS: LOSARTAN POTASSIUM 25 MG TABLET. PO SCH (12:15)
[2020-12-16] MEDS: LEVOTHYROXINE 50 MCG TABLET PO SCH (12:15)
--- NOTE | 2020-12-16 13:30 | RAD ---
ultrasound vein mapping bilateral lower extremities HISTORY: Preop coronary bypass Ultrasound was used to map the greater saphenous veins bilaterally. All superficial veins identified bilaterally are patent and compressible without thrombosis. Proximal right greater saphenous vein measured 6.5 mm at its origin decreasing to 3.5 mm in the proxi mal thigh. Mid to distal greater saphenous in the thigh measured 2.5 and 2.6 mm. Below the knee the g reater saphenous vein on the right measured 2.9 mm. Right lesser saphenous vein was patent measuring 5.3 cm proximally, 4.2 mm in the mid calf and 2.8 mm distally Left greater saphenous vein measured 7.3 cm proximally, between 3.5 and 3.9 mm in the mid to distal t high. Below the knee the greater saphenous vein on the left measuring 4.1 mm, 3.6 mm and 2.9 mm. The left lesser saphenous vein measured 3.4 mm proximally, 3 mm in the mid calf and 2.7 mm distally. IMPRESSION: 1. Patent greater and lesser saphenous veins bilaterally. Measurements as above. Electronically signed by: Newton Jarquin MD (12/16/2020 1:28 PM) [facility]
--- NOTE | 2020-12-16 13:32 | PDOC ---
CARDIOLOGY PROGRESS NOTE SUBJECTIVE: No new chest pain or dyspnea. Still on 5L NC OBJECTIVE: Vital Signs/I&O: Vital Signs Date Time Temp Pulse Resp B/P (MAP) Pulse Ox O2 Delivery O2 Flow Rate FiO2 12/16/20 12:15 62 106/70 12/16/20 11:33 97 Nasal Cannula 5.0 12/16/20 10:48 98.4 22 98.4 l I & O 12/15/20 12/15/20 12/16/20 15:00 23:00 07:00 Intake Total 840 ml 1050 ml 300 ml Output Total 600 ml 600 ml 350 ml Balance 240 ml 450 ml -50 ml Objective: No new changes to exam. Normal heart tones. Trace edema Bibasilar rales. CURRENT MEDICATIONS: asa, amlodipine, atorvastatin, coreg, losartan, lasix and hep gtt DIAGNOSTIC TESTING: Carotid doppler suggestive of severe disease. Labs: Laboratory Tests 12/16/20 07:06 Laboratory Tests Test 12/15/20 16:22 12/15/20 20:43 12/16/20 07:06 12/16/20 07:32 Glucose (Fingerstick) 125 mg/dL (70-99) H 238 mg/dL (70-99) H 118 mg/dL (70-99) H Heparin Anti-Xa Act, Unfractionated 0.54 IU/mL (0.30-0.70) Sodium Level 135 mmol/L (136-145) L Potassium Level 3.8 mmol/L (3.5-5.1) Chloride Level 100 mmol/L (98-107) Carbon Dioxide Level 26 mmol/L (21-32) Anion Gap 9 (6-14) Blood Urea Nitrogen 32 mg/dL (8-26) H Creatinine 1.7 mg/dL (0.7-1.3) H Estimated GFR (Cockcroft-Gault) 39.8 Glucose Level 91 mg/dL (70-99) Calcium Level 8.9 mg/dL (8.5-10.1) Test 12/16/20 11:34 Glucose (Fingerstick) 108 mg/dL (70-99) H ASSESSMENT: 1. Severe ischemic CMP 2. COPD 3. HTN 4. DLP 5. PAD with probable carotid disease. 6. CKD PLAN: 1. Given new carotid findings and also awaiting PFT's to determine full risk profile prior to CABG, will discuss case with [facility] surgery prior to transfer. Continue current meds. CT angio of the neck unable to be done due to his CKD. Supportive care. Thanks Justicifation of Admission Dx: Justifications for Admission: Justification of Admission Dx: N/A MARIE RODRIGUEZ MD Dec 16, 2020 13:32
[2020-12-16] MEDS ORDERED: TEMAZEPAM 15 MG CAPSULE PO PRN (18:15)
[2020-12-16] MEDS: INSULIN GLARGINE SYRINGE. SQ SCH (20:14)
[2020-12-16] MEDS: HEPARIN 25,000UTS/250ML PREMIX 250 ML IV PRN (20:15)
[2020-12-16] MEDS ORDERED: ATORVASTATIN CALCIUM 20 MG TABLET PO SCH (21:00)
[2020-12-17 03:02] VITALS: BP 117/75
[2020-12-17] MEDS: LEVOTHYROXINE 50 MCG TABLET PO SCH (04:52)
[2020-12-17 05:42] LABS: BASO # 0.1 x10^3/uL (0.0-0.2); BASO % 1 % (0-3); EOS # 0.1 x10^3/uL (0.0-0.7); EOS % 1 % (0-3); HEMATOCRIT 41.1 % (39.0-53.0); HEMOGLOBIN 13.9 g/dL (13.0-17.5); LYMPH # 0.6 x10^3/uL (1.0-4.8); LYMPH % 7 % (24-48); MEAN CORPUSCULAR HEMOGLOBIN 32 pg (25-35); MEAN CORPUSCULAR HGB CONC 34 g/dL (31-37); MEAN CORPUSCULAR VOLUME 95 fL (79-100); MONO % 11 % (0-9); NEUT # 6.8 x10^3/uL (1.8-7.7); NEUT % 79 % (31-73); PLATELET COUNT 255 x10^3/uL (140-400); RED BLOOD COUNT 4.32 x10^6/uL (4.30-5.70); RED CELL DISTRIBUTION WIDTH 13.6 % (11.5-14.5); WHITE BLOOD COUNT 8.6 x10^3/uL (4.0-11.0)
[2020-12-17 05:59] LABS: CALCIUM 8.9 mg/dL (8.5-10.1); CREATININE 1.6 mg/dL (0.7-1.3); GFR 42.7; MAGNESIUM 2.1 mg/dL (1.8-2.4); POTASSIUM 3.8 mmol/L (3.5-5.1)
[2020-12-17 07:00] VITALS: BP 128/76
[2020-12-17] MEDS: IPRATRPIUM/ALBUTEROL 0.5/2.5MG 3 ML NEBU. NEB SCH ×2 (07:49→11:00)
[2020-12-17] MEDS: CYANOCOBALAMIN (VITAMIN B-12) 1,000 MCG TABLET. PO SCH (07:58)
[2020-12-17] MEDS: ASPIRIN CHEWABLE 81 MG TABLET. PO SCH (07:58)
[2020-12-17] MEDS: LOSARTAN POTASSIUM 25 MG TABLET. PO SCH (07:59)
[2020-12-17] MEDS: CARVEDILOL 12.5 MG TABLET. PO SCH (07:59)
[2020-12-17] MEDS: ISOSORBIDE MONONITRATE ER 30 MG TAB.ER.24H PO SCH (08:00)
[2020-12-17] MEDS: INSULIN LISPRO 300 UNITS/3 ML VIAL. SQ SCH ×2 (08:00→12:00)
[2020-12-17] MEDS: FUROSEMIDE 40 MG/4 ML VIAL. IVP SCH (09:00)
--- NOTE | 2020-12-17 10:10 | PDOC ---
PROGRESS NOTES Date of Service: DATE: 12/17/20 TIME: 10:07 Subjective Subjective no new problems Objective Objective Vital Signs Date Time Temp Pulse Resp B/P (MAP) Pulse Ox O2 Delivery O2 Flow Rate FiO2 12/17/20 08:00 66 128/76 12/17/20 07:49 95 Nasal Cannula 4.0 12/17/20 07:00 97.5 18 97.5 Intake and Output 12/17/20 07:00 Intake Total 1714 ml Output Total 1850 ml Balance -136 ml Intake Oral 1550 ml IV Total 164 ml Output Urine Total 1850 ml Physical Exam Abdomen: Soft, No tenderness, Other Heart: Regular rate, Other Extremities: No cyanosis, Other General: Alert, Oriented X3, Cooperative, moderate distress HEENT: Atraumatic, Mucous membr. moist/pink MUSCULOSKELETAL: Osteoarthritic changes both hands Neuro: Normal speech, Sensation intact Psych/Mental Status: Mental status NL, Mood NL Skin: No breakdown, No significant lesion Diagnosis Problem List Problems Medical Problems: (1) Acute exacerbation of CHF (congestive heart failure) Status: Acute (2) Acute respiratory failure with hypoxemia Status: Acute (3) Elevated troponin Status: Acute Assessment Assessment 1. Acute shortness of breath secondary to pulmonary edema. 2. Unstable angina.mild non stemi , troponin peaked to 3.0 3. Coronary artery disease. Recent cardiac catheterization shows 3-vessel disease. The patient is scheduled to have a heart bypass surgery in a couple of weeks. 4. Hypertension. 5. Hyperlipidemia. 6. Obesity. 7. Chronic obstructive pulmonary disease. 8.Ac on Ch systolic heart failure,25% EJF PLAN:carotid [id number] % stenosis Lt heparin drip for now start on atrovaststin,ldl 125 start on synthroid , tsh 12 cxr improving . will transfer to [facility] today for CABG cr 1.7 monitor added small dose of Losartin replaced Mag, 1.6 yesterday. 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 And severe coronary artery disease. - troponin level has increased to 3.6. Creatinine has increased to 1.8. Continue IV diuresis. Cardiology and pulmonary consults reviewed and appreciated. Hypothyroidism-TSH is 12. However he also has critical illness at this time and this may also affect TSH. We will let Dr. Masters decide if any adjustments need to be made. Clinically improving Plan Plan of Care Problems Medical Problems: (1) Acute exacerbation of CHF (congestive heart failure) Status: Acute (2) Acute respiratory failure with hypoxemia Status: Acute (3) Elevated troponin Status: Acute Comment Review of Relevant I have reviewed the following items gonsalo (where applicable) has been applied. Labs Laboratory Tests Test 12/16/20 11:34 12/16/20 16:39 12/16/20 20:11 12/16/20 21:02 Glucose (Fingerstick) 108 mg/dL (70-99) 110 mg/dL (70-99) 149 mg/dL (70-99) 152 mg/dL (70-99) Test 12/17/20 05:15 12/17/20 07:48 12/17/20 08:44 White Blood Count 8.6 x10^3/uL (4.0-11.0) Red Blood Count 4.32 x10^6/uL (4.30-5.70) Hemoglobin 13.9 g/dL (13.0-17.5) Hematocrit 41.1 % (39.0-53.0) Mean Corpuscular Volume 95 fL (79-100) Mean Corpuscular Hemoglobin 32 pg (25-35) Mean Corpuscular Hemoglobin Concent 34 g/dL (31-37) Red Cell Distribution Width 13.6 % (11.5-14.5) Platelet Count 255 x10^3/uL (140-400) Neutrophils (%) (Auto) 79 % (31-73) Lymphocytes (%) (Auto) 7 % (24-48) Monocytes (%) (Auto) 11 % (0-9) Eosinophils (%) (Auto) 1 % (0-3) Basophils (%) (Auto) 1 % (0-3) Neutrophils # (Auto) 6.8 x10^3/uL (1.8-7.7) Lymphocytes # (Auto) 0.6 x10^3/uL (1.0-4.8) Monocytes # (Auto) 1.0 x10^3/uL (0.0-1.1) Eosinophils # (Auto) 0.1 x10^3/uL (0.0-0.7) Basophils # (Auto) 0.1 x10^3/uL (0.0-0.2) Heparin Anti-Xa Act, Unfractionated 0.13 IU/mL (0.30-0.70) Sodium Level 134 mmol/L (136-145) Potassium Level 3.8 mmol/L (3.5-5.1) Chloride Level 99 mmol/L (98-107) Carbon Dioxide Level 23 mmol/L (21-32) Anion Gap 12 (6-14) Blood Urea Nitrogen 31 mg/dL (8-26) Creatinine 1.6 mg/dL (0.7-1.3) Estimated GFR (Cockcroft-Gault) 42.7 Glucose Level 115 mg/dL (70-99) Calcium Level 8.9 mg/dL (8.5-10.1) Magnesium Level 2.1 mg/dL (1.8-2.4) Glucose (Fingerstick) 66 mg/dL (70-99) 113 mg/dL (70-99) Medications Current Medications Atorvastatin Calcium (Lipitor) 20 mg QHS PO Last administered on 12/16/20at 20:13; Start 12/16/20 at 21:00 Levothyroxine Sodium (Synthroid) 50 mcg DAILY06 PO Last administered on 12/17/20 04:52; Start 12/16/20 at 11:30 Losartan Potassium (Cozaar) 25 mg DAILY PO Last administered on 12/17/20 07:59; Start 12/16/20 at 12:00 Magnesium Sulfate 50 ml @ 25 mls/hr 1X ONCE IV Last administered on 12/16/20at 12:17; Start 12/16/20 at 12:00; Stop 12/16/20 at 13:59; Status DC Temazepam (Restoril) 15 mg PRN QHS PRN PO INSOMNIA Last administered on 12/16/20at 20:13; Start 12/16/20 at 18:15 Vitals/I & O Vital Sign - Last 24 Hours 12/16/20 12/16/20 12/16/20 12/16/20 10:48 11:33 12:15 14:58 Temp 98.4 98.1 98.4 98.1 Pulse 62 62 61 Resp 22 20 B/P (MAP) 106/70 (82) 106/70 117/69 (85) Pulse Ox 96 97 97 O2 Delivery Nasal Cannula Nasal Cannula Nasal Cannula O2 Flow Rate 5.0 5.0 5.0 212/16/20 12/16/20 12/16/20 16:01 17:53 19:29 19:34 Pulse 61 B/P (MAP) 117/69 Pulse Ox 95 O2 Delivery Nasal Cannula Nasal Cannula Nasal Cannula O2 Flow Rate 5.0 5.0 5.0 12/16/20 12/16/20 12/17/20 12/17/20 19:43 22:47 03:02 07:00 Temp 98.3 98.0 98.5 97.5 98.3 98.0 98.5 97.5 Pulse 66 60 66 69 Resp 18 20 18 18 B/P (MAP) 113/61 (78) 117/70 (86) 117/75 (89) 128/76 (93) Pulse Ox 94 96 98 96 O2 Delivery Nasal Cannula Nasal Cannula Nasal Cannula Nasal Cannula O2 Flow Rate 5.0 5.0 5.0 5.0 12/17/20 12/17/20 12/17/20 12/17/20 07:49 07:59 07:59 08:00 Pulse 66 66 66 B/P (MAP) 128/76 128/76 128/76 Pulse Ox 95 O2 Delivery Nasal Cannula O2 Flow Rate 4.0 Intake and Output 12/16/20 12/16/20 12/17/20 15:00 23:00 07:00 Intake Total 360 ml 950 ml 404 ml Output Total 950 ml 500 ml 400 ml Balance -590 ml 450 ml 4 ml Justifications for Admission Other Justification VIKI MASTERS MD Dec 17, 2020 10:10
[2020-12-17] MEDS ORDERED: ATOR20TA58 PO (10:16)
[2020-12-17] MEDS ORDERED: LEVO50TA5 PO (10:16)
[2020-12-17] MEDS ORDERED: IPRA3AMP29 NEB (10:16)
[2020-12-17] MEDS ORDERED: TEMA15CA PO (10:16)
[2020-12-17] MEDS ORDERED: FURO10VI IVP (10:16)
--- NOTE | 2020-12-17 10:17 | SNU/HH DC ---
DISCHARGE ORDERS DISCHARGE INFORMATION: DISCHARGE DATE: Dec 17, 2020 FINAL DIAGNOSIS Problems Medical Problems: (1) Acute exacerbation of CHF (congestive heart failure) Status: Acute (2) Acute respiratory failure with hypoxemia Status: Acute (3) Elevated troponin Status: Acute CONDITION ON DISCHARGE: Stable CODE STATUS: Code Status: Full POST DISCHARGE ORDERS: WEIGHT BEARING STATUS: No restrictions DIET AFTER DISCHARGE: Cardiac CHECKS AFTER DISCHARGE: CHECKS AFTER DISCHARGE: Check blood sugar, ac/hs TREATMENT/EQUIPMENT ORDERS: RESPIRATORY EQUIPMENT NEEDED: Oxygen, Nebulizer DISCHARGE MEDICATIONS: Home Meds Active Scripts Ipratropium/Albuterol Sulfate (DUONEB 0.5-3(2.5) MG/3 ML) 3 Ml Ampul.neb, 3 ML NEB RTQID for cad for 7 Days, #28 EACH Prov:VIKI HODGES MD 12/17/20 Atorvastatin Calcium (ATORVASTATIN CALCIUM) 20 Mg Tablet, 20 MG PO QHS for chol for 30 Days, #30 TAB Prov:VIKI HODGES MD 12/17/20 Temazepam (TEMAZEPAM) 15 Mg Capsule, 15 MG PO PRN QHS PRN for INSOMNIA for 7 Days, CAP Prov:VIKI HODGES MD 12/17/20 Furosemide (FUROSEMIDE) 10 Mg/1 Ml Vial, 40 MG IVP DAILY for chf for 7 Days, EACH Prov:VIKI HODGES MD 12/17/20 Levothyroxine Sodium (LEVOTHYROXINE SODIUM) 50 Mcg Tablet, 50 MCG PO DAILY06 for thyroid for 30 Days, #30 TAB Prov:VIKI HODGES MD 12/17/20 Reported Medications Insulin Glargine,Hum.rec.anlog (LANTUS SOLOSTAR) 100 Unit/1 Ml Insuln.pen, 45 UNIT SQ QHS for dm, #15 ML 3 Refills 12/14/20 Insulin Aspart (NOVOLOG) 100 Unit/1 Ml Cartridge, 10 UNIT SQ TIDAC for DM, EACH 11/23/20 Aspirin (ASPIRIN) 81 Mg Tab.chew, 81 MG PO DAILY for , TAB.CHEW 11/23/20 Isosorbide Mononitrate (ISOSORBIDE MONONITRATE ER) 30 Mg Tab.er.24h, 30 MG PO DAILY for , #30 TAB.SR 1 Refill 11/23/20 Lisinopril (LISINOPRIL) 40 Mg Tablet, 1 TAB PO DAILY for HTN, #30 TAB 5 Refills 11/23/20 Metformin Hcl (METFORMIN HCL) 500 Mg Tablet, 500 MG PO BIDWMEALS for ANTI- DIABETIC, TAB 0 Refills do not take for 48 hours, next dose Thursday evening 11/2511/23/20 Amlodipine Besylate (AMLODIPINE BESYLATE) 10 Mg Tablet, 10 MG PO DAILY for HTN, TAB 11/23/20 Cyanocobalamin (Vitamin B-12) (B-12) 1,000 Mcg Tablet, 1 TAB PO DAILY for VITAMIN for 30 Days, #30 TAB 0 Refills 11/23/20 Carvedilol (CARVEDILOL) 25 Mg Tablet, 12.5 MG PO BIDWMEALS for CARDIAC, TAB 11/23/20 Discontinued Reported Medications Clopidogrel Bisulfate (CLOPIDOGREL) 75 Mg Tablet, 1 TAB PO DAILY for , #90 TAB 1 Refill 12/14/20 Metronidazole (METRONIDAZOLE) 500 Mg Tablet, 1 TAB PO BID for SKIN IRRITATION for 7 Days, #14 TAB 0 Refills 11/23/20 VIKI HODGES MD Dec 17, 2020 10:17
--- NOTE | 2020-12-17 10:42 | PDOC ---
PULMONARY PROGRESS NOTES DATE: 12/17/20 TIME: 10:41 Subjective feels better off BIPAP, on canula Vitals Vital Signs Date Time Temp Pulse Resp B/P (MAP) Pulse Ox O2 Delivery O2 Flow Rate FiO2 12/17/20 08:00 Nasal Cannula 2.0 12/17/20 08:00 66 128/76 12/17/20 07:49 95 12/17/20 07:00 97.5 18 97.5 General: Alert, No acute distress Lungs: Clear Cardiovascular: S1 Abdomen: Soft Neuro Exam: Alert Extremities: Other (1+edema) Labs Laboratory Tests Test 12/15/20 11:08 12/15/20 16:22 12/15/20 20:43 12/16/20 07:06 Glucose (Fingerstick) 115 mg/dL (70-99) 125 mg/dL (70-99) 238 mg/dL (70-99) Heparin Anti-Xa Act, Unfractionated 0.54 IU/mL (0.30-0.70) Sodium Level 135 mmol/L (136-145) Potassium Level 3.8 mmol/L (3.5-5.1) Chloride Level 100 mmol/L (98-107) Carbon Dioxide Level 26 mmol/L (21-32) Anion Gap 9 (6-14) Blood Urea Nitrogen 32 mg/dL (8-26) Creatinine 1.7 mg/dL (0.7-1.3) Estimated GFR (Cockcroft-Gault) 39.8 Glucose Level 91 mg/dL (70-99) Calcium Level 8.9 mg/dL (8.5-10.1) Magnesium Level 1.6 mg/dL (1.8-2.4) Test 12/16/20 07:32 12/16/20 11:34 12/16/20 16:39 12/16/20 20:11 Glucose (Fingerstick) 118 mg/dL (70-99) 108 mg/dL (70-99) 110 mg/dL (70-99) 149 mg/dL (70-99) Test 12/16/20 21:02 12/17/20 05:15 12/17/20 07:48 12/17/20 08:44 Glucose (Fingerstick) 152 mg/dL (70-99) 66 mg/dL (70-99) 113 mg/dL (70-99) White Blood Count 8.6 x10^3/uL (4.0-11.0) Red Blood Count 4.32 x10^6/uL (4.30-5.70) Hemoglobin 13.9 g/dL (13.0-17.5) Hematocrit 41.1 % (39.0-53.0) Mean Corpuscular Volume 95 fL (79-100) Mean Corpuscular Hemoglobin 32 pg (25-35) Mean Corpuscular Hemoglobin Concent 34 g/dL (31-37) Red Cell Distribution Width 13.6 % (11.5-14.5) Platelet Count 255 x10^3/uL (140-400) Neutrophils (%) (Auto) 79 % (31-73) Lymphocytes (%) (Auto) 7 % (24-48) Monocytes (%) (Auto) 11 % (0-9) Eosinophils (%) (Auto) 1 % (0-3) Basophils (%) (Auto) 1 % (0-3) Neutrophils # (Auto) 6.8 x10^3/uL (1.8-7.7) Lymphocytes # (Auto) 0.6 x10^3/uL (1.0-4.8) Monocytes # (Auto) 1.0 x10^3/uL (0.0-1.1) Eosinophils # (Auto) 0.1 x10^3/uL (0.0-0.7) Basophils # (Auto) 0.1 x10^3/uL (0.0-0.2) Heparin Anti-Xa Act, Unfractionated 0.13 IU/mL (0.30-0.70) Sodium Level 134 mmol/L (136-145) Potassium Level 3.8 mmol/L (3.5-5.1) Chloride Level 99 mmol/L (98-107) Carbon Dioxide Level 23 mmol/L (21-32) Anion Gap 12 (6-14) Blood Urea Nitrogen 31 mg/dL (8-26) Creatinine 1.6 mg/dL (0.7-1.3) Estimated GFR (Cockcroft-Gault) 42.7 Glucose Level 115 mg/dL (70-99) Calcium Level 8.9 mg/dL (8.5-10.1) Magnesium Level 2.1 mg/dL (1.8-2.4) Laboratory Tests Test 12/16/20 11:34 12/16/20 16:39 12/16/20 20:11 12/16/20 21:02 Glucose (Fingerstick) 108 mg/dL (70-99) 110 mg/dL (70-99) 149 mg/dL (70-99) 152 mg/dL (70-99) Test 12/17/20 05:15 12/17/20 07:48 12/17/20 08:44 White Blood Count 8.6 x10^3/uL (4.0-11.0) Red Blood Count 4.32 x10^6/uL (4.30-5.70) Hemoglobin 13.9 g/dL (13.0-17.5) Hematocrit 41.1 % (39.0-53.0) Mean Corpuscular Volume 95 fL (79-100) Mean Corpuscular Hemoglobin 32 pg (25-35) Mean Corpuscular Hemoglobin Concent 34 g/dL (31-37) Red Cell Distribution Width 13.6 % (11.5-14.5) Platelet Count 255 x10^3/uL (140-400) Neutrophils (%) (Auto) 79 % (31-73) Lymphocytes (%) (Auto) 7 % (24-48) Monocytes (%) (Auto) 11 % (0-9) Eosinophils (%) (Auto) 1 % (0-3) Basophils (%) (Auto) 1 % (0-3) Neutrophils # (Auto) 6.8 x10^3/uL (1.8-7.7) Lymphocytes # (Auto) 0.6 x10^3/uL (1.0-4.8) Monocytes # (Auto) 1.0 x10^3/uL (0.0-1.1) Eosinophils # (Auto) 0.1 x10^3/uL (0.0-0.7) Basophils # (Auto) 0.1 x10^3/uL (0.0-0.2) Heparin Anti-Xa Act, Unfractionated 0.13 IU/mL (0.30-0.70) Sodium Level 134 mmol/L (136-145) Potassium Level 3.8 mmol/L (3.5-5.1) Chloride Level 99 mmol/L (98-107) Carbon Dioxide Level 23 mmol/L (21-32) Anion Gap 12 (6-14) Blood Urea Nitrogen 31 mg/dL (8-26) Creatinine 1.6 mg/dL (0.7-1.3) Estimated GFR (Cockcroft-Gault) 42.7 Glucose Level 115 mg/dL (70-99) Calcium Level 8.9 mg/dL (8.5-10.1) Magnesium Level 2.1 mg/dL (1.8-2.4) Glucose (Fingerstick) 66 mg/dL (70-99) 113 mg/dL (70-99) Medications Active Scripts Medications Dose Route/Sig Max Daily Dose Days Date Category Dose Instructions Clopidogrel (Clopidogrel Bisulfate) 75 Mg Tablet 1 Tab PO DAILY 12/14/20 Reported Lantus Solostar (Insulin Glargine,Hum.rec.anlog) 100 Unit/1 Ml Insuln.pen 45 Unit SQ QHS 12/14/20 Reported Novolog (Insulin Aspart) 100 Unit/1 Ml Cartridge 10 Unit SQ TIDAC 11/23/20 Reported Aspirin 81 Mg Tab.chew 81 Mg PO DAILY 11/23/20 Reported Isosorbide Mononitrate Er (Isosorbide Mononitrate) 30 Mg Tab.er.24h 30 Mg PO DAILY 11/23/20 Reported Metronidazole 500 Mg Tablet 1 Tab PO BID 7 11/23/20 Reported Lisinopril 40 Mg Tablet 1 Tab PO DAILY 11/23/20 Reported Metformin Hcl 500 Mg Tablet 500 Mg PO BIDWMEALS 11/23/20 Reported do not take for 48 hours, next dose Thursday evening 11/25 Amlodipine Besylate 10 Mg Tablet 10 Mg PO DAILY 11/23/20 Reported B-12 (Cyanocobalamin (Vitamin B-12)) 1,000 Mcg Tablet 1 Tab PO DAILY 30 11/23/20 Reported Carvedilol 25 Mg Tablet 12.5 Mg PO BIDWMEALS 11/23/20 Reported Comments cxr 12/15 improving CHF, RLL effusion Impression . 1. Acute hypoxic respiratory failure secondary to diffuse interstitial infiltrates consistent with congestive heart failure. He has likely acute on chronic systolic and diastolic heart failure and NSTMI 2. The patient with known cardiomyopathy with ejection fraction of 25% and severe 3-vessel coronary artery disease including left main coronary artery stenosis. Awaiting coronary artery bypass grafting 3. History of tobacco use, likely chronic obstructive pulmonary disease. 4. Mild acute kidney injury. 5. Underlying morbid obesity, cannot exclude sleep apnea. 6. Elevated troponin levels, NSTMIS 7. Abnormal CXR, c/w CHF. Plan . 1. Continue present diuresis.closely watch renal function. 2. Follow up chest x-ray 12/15 with improving CHF post-diuresis. reports h/o mesothelioma 15 years ago without any bx. No mass seen on cxr. Need to get any old records 3. Neg COVID-19 test. Low clinical suspicion. 4. Heparin per protocol per Cardiology. 5. Anti-ischemic medications per Cardiology. 6. Need expedited re-vascularization. transfer to [facility] 7. Discussed with RN 8. Continue candida, prn GEOFF AGUILAR MD Dec 17, 2020 10:42
[2020-12-17 11:00] VITALS: BP 103/66
--- NOTE | 2020-12-17 12:52 | PDOC ---
OSCAR FLOYD THRESHING DEPARTMENT SUPERVISOR 12/17/20 1252: CARDIO Progress Notes Date and Time Date of Service 12/17/20 Time of Evaluation 1245 Subjective Subjective: No Chest Pain, No shortness of breath, No Palpitations Vitals Vitals Vital Signs Date Time Temp Pulse Resp B/P (MAP) Pulse Ox O2 Delivery O2 Flow Rate FiO2 12/17/20 11:02 92 Nasal Cannula 4.0 12/17/20 11:00 97.4 58 18 103/66 (78) 97.4 Weight Weight [ ] Input and Output Intake and Output Intake and Output 12/17/20 07:00 Intake Total 1714 ml Output Total 1850 ml Balance -136 ml Intake Oral 1550 ml IV Total 164 ml Output Urine Total 1850 ml Laboratory Labs Laboratory Tests Test 12/16/20 16:39 12/16/20 20:11 12/16/20 21:02 12/17/20 05:15 Glucose (Fingerstick) 110 mg/dL (70-99) 149 mg/dL (70-99) 152 mg/dL (70-99) White Blood Count 8.6 x10^3/uL (4.0-11.0) Red Blood Count 4.32 x10^6/uL (4.30-5.70) Hemoglobin 13.9 g/dL (13.0-17.5) Hematocrit 41.1 % (39.0-53.0) Mean Corpuscular Volume 95 fL (79-100) Mean Corpuscular Hemoglobin 32 pg (25-35) Mean Corpuscular Hemoglobin Concent 34 g/dL (31-37) Red Cell Distribution Width 13.6 % (11.5-14.5) Platelet Count 255 x10^3/uL (140-400) Neutrophils (%) (Auto) 79 % (31-73) Lymphocytes (%) (Auto) 7 % (24-48) Monocytes (%) (Auto) 11 % (0-9) Eosinophils (%) (Auto) 1 % (0-3) Basophils (%) (Auto) 1 % (0-3) Neutrophils # (Auto) 6.8 x10^3/uL (1.8-7.7) Lymphocytes # (Auto) 0.6 x10^3/uL (1.0-4.8) Monocytes # (Auto) 1.0 x10^3/uL (0.0-1.1) Eosinophils # (Auto) 0.1 x10^3/uL (0.0-0.7) Basophils # (Auto) 0.1 x10^3/uL (0.0-0.2) Heparin Anti-Xa Act, Unfractionated 0.13 IU/mL (0.30-0.70) Sodium Level 134 mmol/L (136-145) Potassium Level 3.8 mmol/L (3.5-5.1) Chloride Level 99 mmol/L (98-107) Carbon Dioxide Level 23 mmol/L (21-32) Anion Gap 12 (6-14) Blood Urea Nitrogen 31 mg/dL (8-26) Creatinine 1.6 mg/dL (0.7-1.3) Estimated GFR (Cockcroft-Gault) 42.7 Glucose Level 115 mg/dL (70-99) Calcium Level 8.9 mg/dL (8.5-10.1) Magnesium Level 2.1 mg/dL (1.8-2.4) Test 12/17/20 07:48 12/17/20 08:44 12/17/20 11:42 Glucose (Fingerstick) 66 mg/dL (70-99) 113 mg/dL (70-99) 125 mg/dL (70-99) Physical Exam HEENT: Neck Supple W Full Motion Chest: Symmetric LUNGS: Clear to Auscultation, Other (diminished base) Heart: RRR Abdomen: Soft N/T Extremities: No Edema Neurology: alert, oriented, follow commands Assessment Assessment 1. Acute on chronic diastolic/systolic CHF:. appears compensated 2. Acute on chronic respiratory failure with COPD and CHF 3. NSTEMI: troponin at 1.6. EKG with baseline RBBB. 4. CAD: severe 3VD including the LM from [facility] 11/23/2020. Followed by [facility] for outpatient CABG. Needing expedited re-vascularization. 5. ICM; EF at 25% 6. Mild NELLA 7. Hypertension 8. Hyperlipidemia 9. Diabetes, II Recommendations Inpatient transfer to [facility] for possible CABG Justicifation of Admission Dx: Justifications for Admission: Justification of Admission Dx: N/A STEFANI PATINO MD 12/18/20 0854: CARDIO Progress Notes Assessment Assessment Patient seen and examined 12/17/20. Agree with CAFETERIA MANAGER's assessment and plan. Acute on chronic systolic heart failure better compensated Non-STEMI, with recent cardiac catheterization showing three-vessel coronary disease, presently chest pain-free Agree with transfer to [facility] for CABG OSCAR FLOYD APRN Dec 17, 2020 12:52 STEFANI PATINO MD Dec 18, 2020 08:54
--- NOTE | 2020-12-17 13:05 | NUR ---
SS following up with discharge planning. SS reviewed pt chart and discussed with pt RN. Pt is currently requiring oxygen at two liters nasal canula. Heparin drip. SS notified that request has been made to [facility] for transfer to [facility] for CABG. SS contacted [facility] transfer team, ; fax [phone], and made request for transfer. SS faxed clinical as requested. CD provided from radiology. Images clouded as requested. Pt accepted at [facility] for transfer. Bed#2301. Report# [phone] for charge nurse or [phone] for floor. Accepting physician, Dr. Leary. Pt will discharge today and go to [facility] via [facility], . Packet, ambulance form, and transfer form on the chart. Pt and pt's RN notified.
[2020-12-17] MEDS: HEPARIN 25,000UTS/250ML PREMIX 250 ML IV PRN (13:57)
--- NOTE | 2020-12-17 14:33 | NUR ---
DC noted: Patient transferred to [facility] for CABG. Report given to nurse Felicitas on Telemetry unit. All questions have been answered and unit phone number given to call for any further nurse related questions regarding patient. Patient transported by [facility] via stretcher on 4L NC and Heparin gtt running at 17unints/kg/hr which is approx. 16.7ml. IV apparatus transitioned to dialo-flu period to departure. Transfer package with patient records given to transport.
--- NOTE | 2020-12-20 08:33 | PDOC ---
Provider Note Date of Service: DATE: 12/20/20 TIME: 08:33 Provider Note Discharge summary dictated.#[id number]. Justifications for Admission Other Justification VIKI HODGES MD Dec 20, 2020 08:33
--- NOTE | 2020-12-20 08:47 | DS ---
DATE OF DISCHARGE: 12/17/2020 REASON FOR ADMISSION TO THE HOSPITAL: Pulmonary edema. CONSULTATIONS: Cardiology, Dr. Monterroso and Dr. Kimble, Pulmonology. HOSPITAL COURSE: The patient is a 70-year-old male with history of shortness of breath. Had a cardiac workup done a month ago. Cardiac cath shows 3-vessel coronary artery disease and systolic heart failure with 25% ejection fraction. The patient was referred for bypass surgery at [facility] and he was scheduled to have elective bypass surgery in couple of weeks. The patient also has history of chronic COPD, diabetes, hypertension, hyperlipidemia, chronic kidney disease between stage 2 and 3. The patient was admitted to the hospital for shortness of breath, was found to have congestive heart failure/pulmonary edema. The patient was given IV Lasix, put on BiPAP and his condition improved. His troponin elevated to 3.0, slight bump. The patient was put on heparin drip, IV Lasix and cardiac medications were titrated. It was felt that waiting for elective bypass in couple of weeks is better to do a bypass as soon as possible. The patient is transferred to [facility] and the patient was weaned off BiPAP, he is on oxygen. He has a carotid Doppler, which shows 50-70% right carotid stenosis, left one no abnormality. On the whole, the patient's condition improved and the patient was transferred to [place]. FINAL DIAGNOSES: 1. Acute pulmonary edema secondary to coronary artery disease. 2. Non-ST elevation myocardial infarction with elevation in troponin. 3. Acute on chronic systolic congestive heart failure secondary to coronary artery disease. 4. Chronic obstructive pulmonary disease. 5. Diabetes, insulin-dependent. 6. Obesity. 7. Chronic kidney disease between stage 2 and 3. DISPOSITION: The patient is transferred to [place] for emergency heart bypass surgery. It is a 3-vessel disease on heart catheterization. VIKI HODGES MD DR: BHARGAVI/hermila JOB#: [id number] / [id number]
== END 2020-12-17 14:31 | disposition short-term general hospital (02) | DRG 280 ==
LOC: ER 05:23 → 2 NORTH 06:55 → 2 SOUTH 10:55
PROVIDERS: ADMIT Internal Medicine; ATTEND Internal Medicine
PROC: 5A09357 Assistance with Respiratory Ventilation, Less than 24 Consecutive Hours, Continuous Positive Airway Pressure (ICD-10-PCS; 2020-12-14)
PROC: 5A09357 Assistance with Respiratory Ventilation, Less than 24 Consecutive Hours, Continuous Positive Airway Pressure (ICD-10-PCS; 2020-12-15)
PROC: 5A09357 Assistance with Respiratory Ventilation, Less than 24 Consecutive Hours, Continuous Positive Airway Pressure (ICD-10-PCS; principal; 2020-12-16)
DX: I21.4 Non-ST elevation (NSTEMI) myocardial infarction (principal); I50.43 Acute on chronic combined systolic (congestive) and diastolic (congestive) heart failure; J96.21 Acute and chronic respiratory failure with hypoxia; I13.0 Hypertensive heart and chronic kidney disease with heart failure and stage 1 through stage 4 chronic kidney disease, or unspecified chronic kidney disease; N17.9 Acute kidney failure, unspecified; I25.110 Atherosclerotic heart disease of native coronary artery with unstable angina pectoris; E11.22 Type 2 diabetes mellitus with diabetic chronic kidney disease; E11.42 Type 2 diabetes mellitus with diabetic polyneuropathy; E66.01 Morbid (severe) obesity due to excess calories; E78.00 Pure hypercholesterolemia, unspecified; E78.5 Hyperlipidemia, unspecified; F17.200 Nicotine dependence, unspecified, uncomplicated; I45.10 Unspecified right bundle-branch block; I25.5 Ischemic cardiomyopathy; J44.9 Chronic obstructive pulmonary disease, unspecified; N18.9 Chronic kidney disease, unspecified; Z68.35 Body mass index [BMI] 35.0-35.9, adult; Z95.1 Presence of aortocoronary bypass graft; Z96.659 Presence of unspecified artificial knee joint; K21.9 Gastro-esophageal reflux disease without esophagitis; M19.90 Unspecified osteoarthritis, unspecified site; Z90.49 Acquired absence of other specified parts of digestive tract; Z88.0 Allergy status to penicillin; E03.9 Hypothyroidism, unspecified; Z88.8 Allergy status to other drugs, medicaments and biological substances; Z20.822 Contact with and (suspected) exposure to COVID-19; Z68.34 Body mass index [BMI] 34.0-34.9, adult; Z79.899 Other long term (current) drug therapy
CPT/HCPCS: 36415; 36600; 71045; 80048; 80053; 80061; 82553; 82805; 82962; 83036; 83735; 83880; 84443; 84484; 85025; 85520; 85610; 85730; 93005; 93880; 93970; 94640; 94660; 94726; 94760; 96374; J1644; J1815; J1940; J3475; U0003; 99291-25; G0378

== ENCOUNTER → 2021-04-23 | Outpatient (CLI) | payer MEDICARE ==
[~2021-04-23] MED LIST changes: +ATOR20TA58 PO; +FURO10VI IVP; +IPRA3AMP29 NEB; +LEVO50TA5 PO; +TEMA15CA PO
--- NOTE | 2021-04-24 10:17 | CARD ---
MR#: [id number] Date of Study: 04/23/2021 Ordering Physician: STEFANI PATINO, Referring Physician: STEFANI PATINO Tech: Jia Millard [facility] APPROVED REPORT EXAM: Two-dimensional and M-mode echocardiogram with Doppler and color Doppler. INDICATION Cardiac Disease: CAD Surgery/Intervention CABG: Date: RISK FACTORS Hypertension Obesity Hyperlipidemia Smoking 2D DIMENSIONS RVDd3.6 (2.9-3.5cm)IVSd1.6 (0.7-1.1cm) LVDd4.2 (3.9-5.9cm)PWd1.5 (0.7-1.1cm) IVSs1.6 (0.8-1.2cm)LVDs3.1 (2.5-4.0cm) FS (%) 26.2 %PWs1.7 (0.8-1.2cm) SV39.9 ml Aortic Valve AoV Peak Dragan.196.5cm/sAoV VTI41.0cm AO Peak GR.15.4mmHgLVOT Peak Dragan.85.1cm/s LVOT VTI 19.40cmAO Mean GR.8mmHg Mitral Valve MV E Hhjedstt86.2cm/sMV DECEL [id number] MV A Uelbtpfs722.2cm/sMV [id number] E/A Ratio0.8MVA (PHT)4.82cm2 TDI E/Lateral E'8.6E/Medial E'12.8 Tricuspid Valve TR P. Brjfetil640sa/sTR Peak Gr.18mmHg LEFT VENTRICLE The Left Ventricle is borderline dilated. There is mild concentric left ventricular hypertrophy. LV s ystolic function is moderately impaired. Estimated ejection fraction is estimated at 35%. Septal mot ion consistent with conduction abnormality. RIGHT VENTRICLE The right ventricle is normal size. There is normal right ventricular wall thickness. The right ventr icular systolic function is normal. ATRIA The left atrium size is normal. The right atrium size is normal. The interatrial septum is intact wit h no evidence for an atrial septal defect or patent foramen ovale as noted on 2-D or Doppler imaging. AORTIC VALVE The aortic valve is normal in structure and function. Doppler and Color Flow revealed no significant aortic regurgitation. There is no significant aortic valvular stenosis. MITRAL VALVE The mitral valve is normal in structure and function. There is no evidence of mitral valve prolapse. There is no mitral valve stenosis. Doppler and Color-flow revealed mild mitral regurgitation. TRICUSPID VALVE The tricuspid valve is normal in structure and function. Doppler and Color Flow revealed mild tricusp id regurgitation. Estimated PAP 25-30 mmHg. There is no tricuspid valve stenosis. GREAT VESSELS The aortic root is normal in size. The ascending aorta is normal in size. The IVC is normal in size a nd collapses >50% with inspiration. PERICARDIAL EFFUSION There is no evidence of significant pericardial effusion. Critical Notification Critical Value: No <Conclusion> The Left Ventricle is borderline dilated. LV systolic function is moderately impaired. Estimated ejection fraction is estimated at 35%. Septal motion consistent with conduction abnormality. There is mild concentric left ventricular hypertrophy. Doppler and Color Flow revealed no significant aortic regurgitation. There is no significant aortic valvular stenosis. Doppler and Color-flow revealed mild mitral regurgitation. Doppler and Color Flow revealed mild tricuspid regurgitation. Estimated PAP 25-30 mmHg. Signed by : Cas Roberts MD Electronically Approved : 04/24/2021 10:16:30
== END ==
LOC: ECHO 09:56
PROVIDERS: ATTEND Internal Medicine Cardiovascular Disease
DX: I08.1 Rheumatic disorders of both mitral and tricuspid valves (principal); J44.9 Chronic obstructive pulmonary disease, unspecified; I25.10 Atherosclerotic heart disease of native coronary artery without angina pectoris
CPT/HCPCS: 93306

== ENCOUNTER → 2021-06-07 | Outpatient (CLI) | payer MEDICARE ==
--- NOTE | 2021-06-07 10:41 | RAD ---
AP and Lateral Views of the Chest 06/07/2021 10:05 AM Indication: Reason: LOW BACK PAIN, LEFT RIB CAGE PAIN / Spl. Instructions: / History: Comparison: Chest radiograph December 15, 2020 Findings: Calcific granuloma, right upper lobe. There is no focal consolidation or infiltrate identif ied. Heart size is normal. Prior median sternotomy noted. There is no evidence of pneumothorax or ple ural effusion. No acute osseous abnormalities are identified. Impression: No evidence of acute cardiopulmonary process. Electronically signed by: Jean Rice MD (06/07/2021 10:39 AM) [id number]
--- NOTE | 2021-06-07 13:20 | RAD ---
EXAM: AP, lateral and lumbosacral spot views of the lumbar spine DATE: 06/07/2021 10:05 AM INDICATION: Low back pain COMPARISON: No Prior FINDINGS: 5 nonrib-bearing lumbar vertebral bodies. Vertebral body heights are preserved. Mild L5-S1 disc heigh t loss. Advanced degenerative change L4-5 and L5-S1. 3 mm anterolisthesis of L4 on L5. Mild T10-11, T 11-12 and T12 and disc height loss. Dense vascular calcifications are seen. Cholecystectomy clips are seen. IMPRESSION: 1. Multilevel spondylosis as above 2. Negative acute fracture. 3. Anterolisthesis of L4 and L5 likely degenerative Electronically signed by: Jayro Hawkins MD (06/07/2021 1:18 PM) [id number]
== END ==
LOC: RAD 09:40
PROVIDERS: ATTEND Internal Medicine
DX: M47.817 Spondylosis without myelopathy or radiculopathy, lumbosacral region (principal); M43.16 Spondylolisthesis, lumbar region; J84.10 Pulmonary fibrosis, unspecified; Z90.49 Acquired absence of other specified parts of digestive tract
CPT/HCPCS: 71046; 72100